=== PATIENT | male | born 2000 | race Caucasian/White ===

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

== ENCOUNTER 2018-02-05 09:17 | Emergency (ER) | payer MEDICAID ==
[2018-02-05] MEDS ORDERED: LEVETIRACETAM 500 MG TABLET PO ONE (09:45)
[2018-02-05] MEDS ORDERED: DIVALPROEX SODIUM 500 MG TAB.SR.24H PO ONE (09:45)
--- NOTE | 2018-02-05 09:49 | ER Document Report ---
ED General - General Chief Complaint: Probable Seizure Stated Complaint: POSSIBLE SEIZURE Time Seen by Provider: 02/05/18 09:39 Notes: Patient is a 17-year-old male that presents to the emergency department for chief complaint of seizure. Patient states that he was at [facility] sitting down, when he had a brief seizure, which she thinks last less than 1 minute. Denies biting his tongue or having bladder incontinence, he does have a history of seizure. He states he missed a dose of his Depakote yesterday which she takes 1500 mg of, he also takes Keppra, but did not missed doses of that. He denies having any headache, lightheadedness or dizziness at this time, denies any nausea or vomiting. He states his last seizure was in December, he is due to see his neurologist in 6 days, to discuss medication dosing. He denies any other complaints at this time. Denies having any pain. Past Medical History: Seizure disorder, ADHD, narcolepsy Past Surgical History: Denies surgical history Social History: Admits to vaping nicotine, denies alcohol or illicit drug use. Family History: Reviewed and noncontributory for presenting illness Allergies: Reviewed, see documented allergy list. REVIEW OF SYSTEMS: Other than noted above, the 12 point review of systems was reviewed with the patient and were negative, all pertinent findings are included in the HPI. PHYSICAL EXAMINATION: Vital signs reviewed, nursing noted reviewed. GENERAL: Well-appearing, well-nourished and in no acute distress. HEAD: Atraumatic, normocephalic. EYES: Eyes appear normal, extraocular movements intact, sclera anicteric, conjunctiva are normal. ENT: nares patent, oropharynx clear without exudates. Moist mucous membranes. No tongue lacerations NECK: Normal range of motion, supple without lymphadenopathy LUNGS: Breath sounds clear to auscultation bilaterally and equal. No wheezes rales or rhonchi. HEART: Regular rate and rhythm without murmurs ABDOMEN: Soft, nontender, normoactive bowel sounds. No rebound, guarding, or rigidity. No masses appreciated. EXTREMITIES: Nontender, good range of motion, no pitting or edema. NEUROLOGICAL: No focal neurological deficits. Moves all extremities spontaneously Motor and sensory grossly intact on exam. PSYCH: Normal mood, flat affect SKIN: Warm, Dry, normal turgor, no rashes or lesions noted on exposed skin TRAVEL OUTSIDE OF THE [place] IN LAST 30 DAYS: No - Related Data Allergies/Adverse Reactions: Penicillins Allergy (Verified 11/17/17 14:54) novacaine Allergy (Uncoded 11/17/17 14:54) Past Medical History - Social History Smoking Status: Unknown if Ever Smoked Chew tobacco use (# tins/day): No Frequency of alcohol use: None Drug Abuse: None Family History: Reviewed & Not Pertinent, Other - Seizure Patient has suicidal ideation: No Patient has homicidal ideation: No Neurological Medical History: Reports: Hx Seizures Renal/ Medical History: Denies: Hx Peritoneal Dialysis Psychiatric Medical History: Reports: Hx Attention Deficit Hyperactivity Disorder, Hx Depression - Immunizations Immunizations up to date: Yes Hx Diphtheria, Pertussis, Tetanus Vaccination: No Physical Exam - Vital signs Vitals: Resp Pulse Ox 12 100 02/05/18 09:21 02/05/18 09:21 Course - Re-evaluation Re-evalutation: Patient seen and examined vital signs reviewed. Patient was treated with 1500 mg of Depakote ER which is prescribed to him, as well as 1000 mg of Keppra ER, again these are his home medications The patient was re-evaluated and was stable, no further seizure activity, patient given food to eat, and monitored, patient on reevaluation again states he is feeling much better, and feels stable to go home, he has an upcoming appoint with his neurologist in 8 days. Evaluation was most consistent with seizure, patient has follow-up appointment, will be discharged home. Results were discussed with the patient at this point, after careful consideration I feel that that patient can be discharged from the emergency department, the patient was educated treatments and reasons to return to the emergency department based on their presumed diagnosis as noted above, they were advised to followup with a primary care physician in 2-3 days. Patient was agreeable to plan of care. *Note is created using voice recognition software and may contain spelling, syntax or grammatical errors. - Vital Signs Vital signs: Temp Pulse Resp BP Pulse Ox 12 129/81 H 98 18 09:22 18 09:22 02/05/18 09:22 - EKG Interpretation by Me Additional EKG results interpreted by me: EKG demonstrates sinus rhythm with a ventricular rate of 60 bpm, normal axis, normal intervals, no evidence of acute ischemia on this EKG, compared with prior EKG from 10/29/2017, without significant change. Discharge - Discharge Clinical Impression: Seizure Condition: Stable Disposition: HOME, SELF-CARE Instructions: Seizure, Known Epileptic ([facility]) Referrals: LUIS BAH MD [Primary Care Provider] - Follow up in 3-5 days
[2018-02-05 10:58] VITALS: BP 109/52
--- NOTE | 2018-02-05 13:01 | EKG REPORT ---
SEVERITY:- NORMAL ECG - SINUS RHYTHM : Confirmed by: Wilder Kuhn MD 05-Feb-2018 13:00:34
== END 2018-02-05 10:58 | disposition home or self-care (01) ==
LOC: ER 09:17
DX: G40.909 Epilepsy, unspecified, not intractable, without status epilepticus (principal); Z88.0 Allergy status to penicillin
CPT/HCPCS: 93005; 99284; 93010; J3490 ×2

== ENCOUNTER 2018-03-01 09:31 | Emergency (ER) | payer MEDICAID ==
[2018-03-01] MEDS ORDERED: LORAZEPAM 0.5 MG TABLET PO ONE (10:51)
--- NOTE | 2018-03-01 10:52 | ER Document Report ---
ED Medical Screen (RME) - General Chief Complaint: Seizure Stated Complaint: POSSIBLE SEIZURE Time Seen by Provider: 03/01/18 10:46 TRAVEL OUTSIDE OF THE [place] IN LAST 30 DAYS: No - HPI Notes: 03/01/18 10:51 Patient is a 17-year-old male that presents to the emergency department for chief complaint of seizure. Patient has epilepsy and is on Keppra and Depakote. He denies any missed medication or changes in his medication. His last seizure was in August 2017. Today while in school he had what he believes was a seizure. He does not remember the event and reports complete loss of consciousness. Wali cheng states a friend was with him who caught him and lowered him to the ground. He denied injury during the seizure.. ROS: GENERAL: Denies fever of chills CV: Denies chest pain Neuro: Seizure PHYSICAL EXAMINATION: GENERAL: Well-appearing, well-nourished and in no acute distress. HEAD: Atraumatic, normocephalic. EYES: Pupils equal round extraocular movements intact, conjunctiva are normal. ENT: Nares patent NECK: Normal range of motion LUNGS: No respiratory distress Musculoskeletal: Normal range of motion NEUROLOGICAL: Fluttering and convulsions of upper facial muscles and eyelids, normal speech, normal mentation PSYCH: Normal mood, normal affect. MDM: Patient seen and examined for rapid initial assessment. Vital signs reviewed. A comprehensive ED assessment and evaluation of the patient, analysis of test results and completion of the medical decision making process will be conducted by additional ED providers. - Related Data Allergies/Adverse Reactions: Penicillins Allergy (Verified 11/17/17 14:54) novacaine Allergy (Uncoded 11/17/17 14:54) Past Medical History - Social History Family history: Other - MOM IN JANUARY Neurological Medical History: Reports: Hx Seizures Renal/ Medical History: Denies: Hx Peritoneal Dialysis Psychiatric Medical History: Reports: Hx Attention Deficit Hyperactivity Disorder, Hx Depression - Immunizations Immunizations up to date: Yes Hx Diphtheria, Pertussis, Tetanus Vaccination: No Physical Exam - Vital signs Vitals: Temp Pulse Resp BP Pulse Ox 98.5 F 78 20 122/61 100 03/01/18 09:37 03/01/18 09:37 03/01/18 09:37 03/01/18 09:37 03/01/18 09:37 Course - Vital Signs Vital signs: Temp Pulse Resp BP Pulse Ox 98.5 F 78 20 122/61 100 03/01/18 09:37 03/01/18 09:37 03/01/18 09:37 03/01/18 09:37 03/01/18 09:37 Doctor's Discharge - Discharge Referrals: LUIS BAH MD [Primary Care Provider] - Follow up as needed
--- NOTE | 2018-03-01 12:14 | ER Document Report ---
ED General - General Chief Complaint: Seizure Stated Complaint: POSSIBLE SEIZURE Time Seen by Provider: 03/01/18 10:46 Notes: 17-year-old male that presents to the emergency department for chief complaint of seizure. Patient has epilepsy and is on Keppra and Depakote. He denies any missed medication or changes in his medication. His last seizure was in August 2017. Today while in school he had what he believes was a seizure. He does not remember the event and reports complete loss of consciousness. Patient states a friend was with him who caught him and lowered him to the ground. He denied injury during the seizure. TRAVEL OUTSIDE OF THE [place] IN LAST 30 DAYS: No - Related Data Allergies/Adverse Reactions: Penicillins Allergy (Verified 11/17/17 14:54) novacaine Allergy (Uncoded 11/17/17 14:54) Past Medical History - Social History Smoking Status: Never Smoker Chew tobacco use (# tins/day): No Frequency of alcohol use: None Drug Abuse: None Family History: Reviewed & Not Pertinent, Other - Seizure Patient has suicidal ideation: No Patient has homicidal ideation: No Neurological Medical History: Reports: Hx Seizures Renal/ Medical History: Denies: Hx Peritoneal Dialysis Psychiatric Medical History: Reports: Hx Attention Deficit Hyperactivity Disorder, Hx Depression - Immunizations Immunizations up to date: Yes Hx Diphtheria, Pertussis, Tetanus Vaccination: No Review of Systems - Review of Systems Constitutional: denies: Chills, Fever Gastrointestinal: denies: Nausea, Vomiting Neurological/Psychological: Seizure, Lost consciousness -: Yes All other systems reviewed and negative Physical Exam - Vital signs Vitals: Temp Pulse Resp BP Pulse Ox 98.5 F 78 20 122/61 100 03/01/18 09:37 03/01/18 09:37 03/01/18 09:37 03/01/18 09:37 03/01/18 09:37 - Notes Notes: GENERAL_APPEARANCE: well_nourished, alert, cooperative, no_acute_distress, no_obvious_discomfort. VITALS: reviewed, see vital signs table. HEAD: no_swelling\tenderness on the head. EYES: PERRL, EOMI, conjunctiva_clear. NOSE: no_nasal_discharge. MOUTH: (-)decreased moisture. No tongue biting THROAT: no_throat_inflammation, no_airway_obstruction. no_lymphadenopathy NECK: supple, no_neck_tenderness, (-)thyromegaly. BACK: no_back_tenderness. CHEST_WALL: no_chest_tenderness. LUNGS: no_wheezing, no_rales, no_rhonchi, (-)accessory muscle use, good air exchange bilateral. HEART: normal_rate, normal_rhythm, normal_S1, normal_S2, (-)S3, (-)S4, no_murmur, no_rub. ABDOMEN: normal_BS, soft, no_abd_tenderness, (-)guarding, (-)rebound, no_organo megaly, no_abd_masses. EXTREMITIES: good pulses in all_extremities, no_swelling\tenderness in the extremities, no_edema. SKIN: warm, dry, good_color, no_rash. MENTAL_STATUS: speech_clear, oriented_X_3, normal_affect, responds_appropriately to questions. NEURO: Neg Motor or Sensory Deficits on exam, CN 2-12 intact, DTR 2+ symmetric x 4, No cerbellar signs Course - Re-evaluation Re-evalutation: 03/01/18 12:14 Patient is doing well he was a little postictal but is waking up back to baseline. Triage was placed some levels for his medications. He states he has been compliant he has no focal neurosensory deficits. Monitor him to his baseline and discharge. The only reason he got sent is because he was in a public place at school. Has had seizures since he was young - Vital Signs Vital signs: Temp Pulse Resp BP Pulse Ox 98.5 F 78 20 122/61 100 03/01/18 09:37 03/01/18 09:37 03/01/18 10:46 03/01/18 09:37 03/01/18 09:37 - Laboratory Laboratory results interpreted by me: 03/01/18 09:15 Valproic Acid < 10.0 L Discharge - Discharge Clinical Impression: Breakthrough seizure Condition: Good Disposition: HOME, SELF-CARE Instructions: Seizure, Known Epileptic ([facility]) Additional Instructions: Your levels for your seizure medicines are very low. Please be sure that you are taking her seizure medicines as directed. Follow-up with your doctor as soon as possible Referrals: LUIS BAH MD [Primary Care Provider] - Follow up as needed
[2018-03-01] MEDS ORDERED: DIVALPROEX SODIUM 500 MG TAB.SR.24H PO ONE (13:52)
[2018-03-01] MEDS ORDERED: LEVETIRACETAM 500 MG TABLET PO ONE (14:15)
[2018-03-01 14:50] VITALS: BP 125/56
== END 2018-03-01 14:48 | disposition home or self-care (01) ==
LOC: ER 09:31
DX: G40.909 Epilepsy, unspecified, not intractable, without status epilepticus (principal); Z88.0 Allergy status to penicillin
CPT/HCPCS: 99284; 36415; 80177; 80164; J3490 ×2

== ENCOUNTER 2018-04-11 08:46 | Emergency (ER) | payer MEDICAID ==
[2018-04-11] MEDS ORDERED: NORMAL SALINE 1000 ML 1,000 ML IV ONE (10:01)
[2018-04-11] MEDS ORDERED: LEVETIRACETAM 1000 MG/NACL-ISO 1,000 MG/100 ML RTUPB IV ONE (10:02)
--- NOTE | 2018-04-11 10:10 | ER Document Report ---
ED General - General Chief Complaint: Seizure Stated Complaint: VOMITTING Time Seen by Provider: 04/11/18 09:54 Primary Care Provider: LUIS BAH MD [Primary Care Provider] - Follow up tomorrow Notes: Patient is a 17-year-old male with epilepsy that presents to the emergency department for chief complaint of seizure and episode of vomiting. Patient does not recall the events surrounding his seizure, he states he is getting ready to go to the doctor's office, and that is lasting he remembers, he was at home when this occurred. He did vomit. He denies having any cough or shortness of breath or chest pain at this time. He does take Keppra and Depakote, states he has been taking these medications, and denies missing any doses. He states overall he is feeling better and recovering from this most recent seizure. He has been seen in the ER almost once a month for the past several months for seizures. He does have a follow-up appoint with his neurologist coming up. At this time he denies having any pain, lightheadedness, dizziness, headache, numbness, weakness or tingling in any extremity. Past Medical History: Narcolepsy, seizure disorder Past Surgical History: Denies surgical history Social History: Admits to smoking cigarettes, and rare alcohol use, denies illicit drug use. Family History: Reviewed and noncontributory for presenting illness Allergies: Reviewed, see documented allergy list. REVIEW OF SYSTEMS: Other than noted above, the 12 point review of systems was reviewed with the patient and were negative, all pertinent findings are included in the HPI. PHYSICAL EXAMINATION: Vital signs reviewed, nursing noted reviewed. GENERAL: Well-appearing, well-nourished and in no acute distress. HEAD: Atraumatic, normocephalic. EYES: extraocular movements intact, sclera anicteric, conjunctiva are normal, PERRLA, mild bilateral horizontal nystagmus. ENT: nares patent, oropharynx clear without exudates. Moist mucous membranes. NECK: Normal range of motion, supple without lymphadenopathy LUNGS: Breath sounds clear to auscultation bilaterally and equal. No wheezes ra les or rhonchi. HEART: heart rate tachycardic, regular rhythm ABDOMEN: Soft, nontender, normoactive bowel sounds. No rebound, guarding, or rigidity. No masses appreciated. EXTREMITIES: Nontender, good range of motion, no pitting or edema. NEUROLOGICAL: No focal neurological deficits. Moves all extremities spontaneously Motor and sensory grossly intact on exam. PSYCH: Flat affect, but answering questions appropriately. SKIN: Warm, Dry, normal turgor, no rashes or lesions noted on exposed skin TRAVEL OUTSIDE OF THE [place] IN LAST 30 DAYS: No - Related Data Allergies/Adverse Reactions: Penicillins Allergy (Verified 04/11/18 08:50) novacaine Allergy (Uncoded 04/11/18 08:50) Past Medical History - Social History Smoking Status: Current Every Day Smoker Family History: Reviewed & Not Pertinent, Other - Seizure Neurological Medical History: Reports: Hx Seizures Renal/ Medical History: Denies: Hx Peritoneal Dialysis Psychiatric Medical History: Reports: Hx Attention Deficit Hyperactivity Disorder, Hx Depression - Immunizations Immunizations up to date: Yes Hx Diphtheria, Pertussis, Tetanus Vaccination: No Physical Exam - Vital signs Vitals: Temp Pulse Resp BP Pulse Ox 98.4 F 112 H 14 114/68 97 04/11/18 08:51 04/11/18 08:51 04/11/18 08:51 04/11/18 08:51 04/11/18 08:51 Course - Re-evaluation Re-evalutation: Patient seen and examined vital signs reviewed. Laboratory data and imaging were ordered as appropriate for the patient's presenting symptoms and complaint, with consideration of any critical or life threatening conditions that may be associated with their obtained history and exam as noted above. Previous visit reviewed, patient did have blood work drawn at that time his Depakote level was subtherapeutic, which could be the underlying issue with this patient, will repeat the Depakote level today. Patient was treated with IV fluids and IV Keppra 1000 mg Results were reviewed when available and demonstrated mild leukocytosis, his Depakote level was undetectable, I discussed this with him, that he needs to make sure he is taking his medication, and may need dose adjustments, to follow- up with his neurologist which she was agreeable to The patient was re-evaluated and was improved and stable, no further seizure activity Evaluation was most consistent with seizure nonepileptic. Results were discussed with the patient at this point, after careful consideration I feel that that patient can be discharged from the emergency department, the patient was educated treatments and reasons to return to the emergency department based on their presumed diagnosis as noted above, they were advised to followup with a primary care physician in 2-3 days. Patient was agreeable to plan of care. *Note is created using voice recognition software and may contain spelling, syntax or grammatical errors. Laboratory 04/11/18 04/11/18 10:25 10:25 WBC 12.8 H RBC 4.98 Hgb 15.4 Hct 45.0 MCV 90 MCH 30.9 MCHC 34.2 RDW 13.1 Plt Count 263 Sodium 141.3 Potassium 4.4 Chloride 100 Carbon Dioxide 29 Anion Gap 12 BUN 15 Creatinine 0.96 Est GFR ( Amer) > 60 Est GFR (Non-Af Amer) > 60 Glucose 109 Calcium 9.8 Valproic Acid < 10.0 L - Vital Signs Vital signs: Temp Pulse Resp BP Pulse Ox 97.8 F 85 16 103/60 99 04/11/18 11:18 04/11/18 11:18 04/11/18 11:18 04/11/18 11:16 04/11/18 11:18 - Laboratory Result Diagrams: 04/11/18 10:25 04/11/18 10:25 Laboratory results interpreted by me: 04/11/18 04/11/18 10:25 10:25 WBC 12.8 H Valproic Acid < 10.0 L Discharge - Discharge Clinical Impression: Seizure Condition: Stable Disposition: HOME, SELF-CARE Instructions: Seizure, Known Epileptic ([facility]) Additional Instructions: Please follow-up with your neurologist, your Depakote levels are undetectable in your system, meaning that you likely need increase in your dosing. Please make sure you are taking all the prescribed medications for your seizure disorder as directed. Referrals: LUIS BAH MD [Primary Care Provider] - Follow up tomorrow
[2018-04-11 10:41] LABS: HEMOGLOBIN 15.4 g/dL (13.5-17.0); MEAN CORPUSCULAR HEMOGLOBIN 30.9 pg (27.0-33.4); MEAN CORPUSCULAR HGB CONC 34.2 g/dL (32.0-36.0); MEAN CORPUSCULAR VOLUME 90 fl (80-97); PLATELET COUNT 263 10^3/uL (150-450); RED BLOOD COUNT 4.98 10^6/uL (4.35-5.55); RED CELL DISTRIBUTION WIDTH 13.1 % (11.5-14.0); WHITE BLOOD COUNT 12.8 10^3/uL (4.0-10.5)
[2018-04-11 11:00] LABS: ANION GAP 12 (5-19); BLOOD UREA NITROGEN 15 mg/dL (7-20); CALCIUM 9.8 mg/dL (8.4-10.2); CARBON DIOXIDE 29 mmol/L (22-30); CHLORIDE 100 mmol/L (98-107); GLUCOSE 109 mg/dL (75-110); POTASSIUM 4.4 mmol/L (3.6-5.0); SODIUM 141.3 mmol/L (137-145)
[2018-04-11 11:21] VITALS: BP 103/60
== END 2018-04-11 11:29 | disposition home or self-care (01) ==
LOC: ER 08:46
DX: R56.9 Unspecified convulsions (principal); R11.10 Vomiting, unspecified; F17.210 Nicotine dependence, cigarettes, uncomplicated
CPT/HCPCS: 99284; 96365; 36415; 85027; 80048; 80164; J7030; J1953

== ENCOUNTER 2018-06-19 16:18 | Emergency (ER) | payer MEDICAID ==
[2018-06-19] MEDS ORDERED: NORMAL SALINE 1000 ML 1,000 ML IV ONE (19:30)
[2018-06-19] MEDS ORDERED: ONDANSETRON HCL INJ/PF 4 MG/2 ML SDV IV ONE (19:30)
--- NOTE | 2018-06-19 19:32 | ER Document Report ---
ED Medical Screen (RME) - General Chief Complaint: Nausea/Vomiting/Diarrhea Stated Complaint: NAUSEA/VOMITING Time Seen by Provider: 06/19/18 19:28 Primary Care Provider: LUIS BAH MD [Primary Care Provider] - Follow up as needed Mode of Arrival: Ambulatory Information source: Patient Notes: Patient is a 17-year-old male with seizure history presenting to the emergency department with nausea, vomiting, diarrhea and fevers. He states all symptoms started yesterday. He reports generalized abdominal pain. He denies any pain, back pain, dysuria or urinary frequency. He denies any sick contacts. Exam: Patient dry heaving during exam. Abdomen soft, nontender with no guarding and no rebound. I have greeted and performed a rapid initial assessment of this patient. A comprehensive ED assessment and evaluation of the patient, analysis of test results and completion of the medical decision making process will be conducted by additional ED providers. Dictation of this chart was performed using voice recognition software; therefore, there may be some unintended grammatical errors. TRAVEL OUTSIDE OF THE [place] IN LAST 30 DAYS: No - Related Data Allergies/Adverse Reactions: Penicillins Allergy (Verified 04/11/18 08:50) novacaine Allergy (Uncoded 04/11/18 08:50) Past Medical History - Social History Family history: Other - MOM IN JANUARY Neurological Medical History: Reports: Hx Seizures Renal/ Medical History: Denies: Hx Peritoneal Dialysis Psychiatric Medical History: Reports: Hx Attention Deficit Hyperactivity Disord er, Hx Depression - Immunizations Immunizations up to date: Yes Hx Diphtheria, Pertussis, Tetanus Vaccination: No Physical Exam - Vital signs Vitals: Temp Pulse Resp BP Pulse Ox 98.3 F 106 H 18 124/65 97 06/19/18 16:29 06/19/18 16:29 06/19/18 16:29 06/19/18 16:29 06/19/18 16:29 Course - Vital Signs Vital signs: Temp Pulse Resp BP Pulse Ox 98.3 F 106 H 18 124/65 97 06/19/18 16:29 06/19/18 16:29 06/19/18 16:29 06/19/18 16:29 06/19/18 16:29 Doctor's Discharge - Discharge Referrals: LUIS BAH MD [Primary Care Provider] - Follow up as needed
[2018-06-19 20:16] LABS: APPEARANCE,URINE CLEAR; BILIRUBIN,URINE NEGATIVE (NEGATIVE); COLOR,URINE YELLOW; GLUCOSE, URINE NEGATIVE (NEGATIVE); KETONES,URINE TRACE mg/dL (NEGATIVE); LEUKOCYTE ESTERASE,URINE NEGATIVE (NEGATIVE); NITRITE,URINE NEGATIVE (NEGATIVE); PROTEIN,URINE NEGATIVE (NEGATIVE); URINE SPECIFIC GRAVITY 1.028; UROBILINOGEN,URINE NEGATIVE mg/dL (<2.0)
[2018-06-19 20:32] LABS: ABSOLUTE LYMPHOCYTES (AUTO) 1.1 10^3/uL (0.5-4.7); ABSOLUTE MONOCYTES (AUTO) 1.2 10^3/uL (0.1-1.4); ABSOLUTE NEUT (AUTO) 6.4 10^3/uL (1.7-8.2); BASOPHILS % (AUTO) 0.4 % (0-2); HEMATOCRIT 44.3 % (37.9-51.0); HEMOGLOBIN 15.3 g/dL (13.5-17.0); LYMPHOCYTES % (AUTO) 12.1 % (13-45); MEAN CORPUSCULAR HEMOGLOBIN 31.4 pg (27.0-33.4); MEAN CORPUSCULAR HGB CONC 34.6 g/dL (32.0-36.0); MEAN CORPUSCULAR VOLUME 91 fl (80-97); PLATELET COUNT 184 10^3/uL (150-450); RED BLOOD COUNT 4.88 10^6/uL (4.35-5.55); RED CELL DISTRIBUTION WIDTH 14.1 % (11.5-14.0); SEGMENTED NEUTROPHILS % (AUTO) 73.5 % (42-78); TOTAL CELLS COUNTED % (AUTO) 100 %; WHITE BLOOD COUNT 8.7 10^3/uL (4.0-10.5)
--- NOTE | 2018-06-19 20:36 | ER Document Report ---
ED General - General Chief Complaint: Nausea/Vomiting/Diarrhea Stated Complaint: NAUSEA/VOMITING Time Seen by Provider: 06/19/18 19:28 Primary Care Provider: LUIS BAH MD [Primary Care Provider] - Follow up in 3-5 days Mode of Arrival: Ambulatory Notes: Patient is a 17-year-old male who presents to the emergency department with a chief complaint of vomiting and diarrhea. He states that his symptoms started yesterday. He states that he has had more diarrhea than vomiting. He denies any sick contacts. Denies any pain. Denies hematochezia and hematemesis. He does have a past medical history of seizures, and takes Keppra and Depakote. TRAVEL OUTSIDE OF THE [place] IN LAST 30 DAYS: No - Related Data Allergies/Adverse Reactions: Penicillins Allergy (Verified 04/11/18 08:50) novacaine Allergy (Uncoded 04/11/18 08:50) Past Medical History - General Information source: Patient - Social History Smoking Status: Current Some Day Smoker Frequency of alcohol use: None Drug Abuse: None Family History: Reviewed & Not Pertinent, Other - Seizure Patient has suicidal ideation: No Patient has homicidal ideation: No Neurological Medical History: Reports: Hx Seizures Renal/ Medical History: Denies: Hx Peritoneal Dialysis Psychiatric Medical History: Reports: Hx Attention Deficit Hyperactivity Disorde r, Hx Depression - Immunizations Immunizations up to date: Yes Hx Diphtheria, Pertussis, Tetanus Vaccination: No Review of Systems - Review of Systems Notes: REVIEW OF SYSTEMS: CONSTITUTIONAL : Denies recent illness. Denies recent unintentional weight loss. Denies fever, chills, or sweats. EENT: Denies eye, ear, throat, or mouth pain, discharge, or symptoms. Denies nasal or sinus congestion. CARDIOVASCULAR: Denies chest pain. RESPIRATORY: Denies shortness of breath, cough, congestion, difficulty breathing, or wheezing. GASTROINTESTINAL: See HPI GENITOURINARY: Denies difficulty urinating, burning, blood in urine, urgency or frequency. MUSCULOSKELETAL: Denies neck and back pain. Denies joint pain or swelling. SKIN: Denies rash, itchiness, or lesions HEMATOLOGIC : Denies easy bruising or bleeding. LYMPHATIC: Denies swollen, painful, enlarged glands. NEUROLOGICAL: Denies no numbness or tingling denies weakness. Denies headache. Denies altered mental status. Denies alteration in speech. PSYCHIATRIC: Denies stress, anxiety, alteration in sleep patterns, or depression. All other systems reviewed and negative. Physical Exam - Vital signs Vitals: Temp Pulse Resp BP Pulse Ox 98.3 F 106 H 18 124/65 97 06/19/18 16:29 06/19/18 16:29 06/19/18 16:29 06/19/18 16:29 06/19/18 16:29 - Notes Notes: PHYSICAL EXAMINATION: GENERAL: Appears well, healthy, well-nourished, no acute distress. HEAD: Normocephalic, atraumatic. EYES: PERRL, conjunctiva normal, all extraocular movements intact, sclera nonicteric ENT: Dry mucous membranes. NECK: Supple, no noticeable swelling, redness, rash. Normal range of motion. LUNGS: Equal breath sounds bilaterally and clear to auscultation. No wheezes rales or rhonchi. CARDIOVASCULAR: S1-S2, regular rate, regular rhythm. Radial pulses 2+, normal. ABDOMEN: Normoactive bowel sounds. Soft, nontender, no guarding, no rebound tenderness, and no masses palpated. EXTREMITIES: Normal strength and range of motion, no pitting or edema. No cyanosis. NEUROLOGICAL: Moves all extremities upon command. Strength 5/5 in all extremities. PSYCH: Normal mood, normal affect. SKIN: Warm, dry. No rash, lesions, ulcerations noted. Normal skin turgor. Course - Re-evaluation Re-evalutation: 06/19/18 20:59 Patient CBC and chemistries are unremarkable. Urinalysis is unremarkable. Patient's abdominal exam is very benign. He states that when I pressed on his abdomen, makes him feel like he is going to have some diarrhea. Denies any pain. I do not suspect appendicitis, mesenteric ischemia, bowel obstruction, perforated bowel, or other life-threatening etiology at this time. I suspect t his is a viral gastroenteritis. He will be sent home with Zofran as needed for nausea. I have discussed that the virus needs to run its course. He is in agreement with this plan he will follow-up with his primary care doctor. Verbal discharge instructions were given to the patient. They verbalized understanding. They are stable for discharge. - Vital Signs Vital signs: Temp Pulse Resp BP Pulse Ox 98.4 F 81 18 112/60 99 06/19/18 21:58 06/19/18 21:58 06/19/18 21:58 06/19/18 21:58 06/19/18 21:58 - Laboratory Result Diagrams: 06/19/18 20:00 06/19/18 20:00 Laboratory results interpreted by me: 06/19/18 06/19/18 06/19/18 19:57 20:00 20:00 RDW 14.1 H Lymphocytes % 12.1 L Monocytes % 14.0 H Chloride 95 L BUN 25 H Alkaline Phosphatase 60 L Urine Ketones TRACE H Urine Blood SMALL H Discharge - Discharge Clinical Impression: Vomiting and diarrhea Condition: Stable Disposition: HOME, SELF-CARE Instructions: Intravenous (IV) Fluids ([facility]), Vomiting ([facility]) Additional Instructions: You were seen today in the emergency department for vomiting and diarrhea. Most likely cause of your nausea and vomiting is a viral infection. You been given nausea medication. Please take 1 tablet every 4-6 hours as needed for nausea and vomiting. Please follow-up with your primary care provider in 3 to 5 days. If you have worsening symptoms, have symptoms that are worrisome to you, or have abdominal pain, please return to the emergency department. Referrals: LUIS BAH MD [Primary Care Provider] - Follow up in 3-5 days
[2018-06-19 20:45] LABS: ALANINE AMINOTRANSFERASE 25 U/L (10-40); ALBUMIN 4.6 g/dL (3.7-5.6); ALKALINE PHOSPHATASE 60 U/L (65-260); ANION GAP 15 (5-19); ASPARTATE AMINO TRANSFERASE 25 U/L (10-45); BILIRUBIN,DIRECT 0.2 mg/dL (0.0-0.4); BILIRUBIN,TOTAL 0.4 mg/dL (0.2-1.3); BLOOD UREA NITROGEN 25 mg/dL (7-20); CALCIUM 9.8 mg/dL (8.4-10.2); CARBON DIOXIDE 30 mmol/L (22-30); CHLORIDE 95 mmol/L (98-107); GLUCOSE 89 mg/dL (75-110); LIPASE 35.9 U/L (23-300); POTASSIUM 3.6 mmol/L (3.6-5.0); SODIUM 139.8 mmol/L (137-145); TOTAL PROTEIN 7.8 g/dL (6.3-8.2)
[2018-06-19] MEDS ORDERED: ONDANSETRON ODT 4 MG TAB (6 TAB/ER DISP) PO PRN (21:01)
[2018-06-19 21:59] VITALS: BP 112/60
== END 2018-06-19 21:58 | disposition home or self-care (01) ==
LOC: ER 16:18
DX: R11.2 Nausea with vomiting, unspecified (principal); R19.7 Diarrhea, unspecified; F17.200 Nicotine dependence, unspecified, uncomplicated
CPT/HCPCS: 99284; 96361; 96374; 36415; 83690; 85025; 80053; 81001; J2405; J7030

== ENCOUNTER 2018-09-14 15:25 | Emergency (ER) | payer MEDICAID ==
[2018-09-14] MEDS ORDERED: LEVETIRACETAM INJ/PF 500 MG/5 ML SDV IV ONE (15:48)
[2018-09-14 15:54] LABS: ABSOLUTE BASOPHILS # (AUTO) 0.1 10^3/uL (0.0-0.2); ABSOLUTE EOSINOPHILS # (AUTO) 0.1 10^3/uL (0.0-0.6); ABSOLUTE LYMPHOCYTES (AUTO) 2.1 10^3/uL (0.5-4.7); ABSOLUTE MONOCYTES (AUTO) 0.8 10^3/uL (0.1-1.4); ABSOLUTE NEUT (AUTO) 6.6 10^3/uL (1.7-8.2); BASOPHILS % (AUTO) 0.5 % (0-2); EOSINOPHILS % (AUTO) 1.5 % (0-6); HEMATOCRIT 40.3 % (37.9-51.0); HEMOGLOBIN 13.8 g/dL (13.5-17.0); LYMPHOCYTES % (AUTO) 21.6 % (13-45); MEAN CORPUSCULAR HEMOGLOBIN 31.5 pg (27.0-33.4); MEAN CORPUSCULAR HGB CONC 34.2 g/dL (32.0-36.0); MEAN CORPUSCULAR VOLUME 92 fl (80-97); MONOCYTES % (AUTO) 8.1 % (3-13); PLATELET COUNT 249 10^3/uL (150-450); RED BLOOD COUNT 4.38 10^6/uL (4.35-5.55); RED CELL DISTRIBUTION WIDTH 12.6 % (11.5-14.0); SEGMENTED NEUTROPHILS % (AUTO) 68.3 % (42-78); TOTAL CELLS COUNTED % (AUTO) 100 %; WHITE BLOOD COUNT 9.7 10^3/uL (4.0-10.5)
[2018-09-14] MEDS ORDERED: VALPROATE SODIUM INJ/PF 500 MG/5 ML SDV IV ONE (15:54)
--- NOTE | 2018-09-14 16:00 | ER Document Report ---
ED General - General Chief Complaint: Probable Seizure Stated Complaint: SEIZURE Time Seen by Provider: 09/14/18 15:42 Primary Care Provider: LUIS BAH MD [Primary Care Provider] - Follow up as needed Information source: Patient Notes: HPI: 17-year-old male with a long history of seizure disorders. Supposedly has been out of his Keppra and Depakote since Sunday. He did see the primary care physician and went to the pharmacy but supposed with the pharmacy at [facility] did not yet have the medications ready. He does have a primary care physician. Patient started to have some "eyes flickering" today. Specially this is the prodrome of his normal tonic-clonic seizures. He has had this multiple times in the past. Girlfriend is at bedside. Patient has not fa llen, no obvious tonic-clonic activity, and the patient is still answering questions. Patient denies any and all pain. Last medications have been taken for Sunday. Patient normally takes 1500 mg of Depakote and 1000 mg of Keppra daily. ROS: See HPI All other review of systems reviewed and otherwise negative Reviewed vital signs and nursing note as charted by RN. PHYSICAL EXAM: CONSTITUTIONAL: Alert and does answer questions and follow commands HEAD: Normocephalic; atraumatic EYES: PERRL; she has a flickering like I finding that does not look nystagmus in nature; it does involve the eyelids; conjunctivae clear, sclerae non-icteric ENT: Normal nose; no rhinorrhea; moist mucous membranes; pharynx without lesions noted NECK: Supple without meningismus; non-tender; no cervical lymphadenopathy, no masses CARD: Regular rate and rhythm; no murmurs; symmetric distal pulses RESP: Normal chest excursion without splinting or tachypnea; breath sounds clear and equal bilaterally; no wheezes, no rhonchi, no rales ABD/GI: Normal bowel sounds; non-distended; soft, non-tender BACK: The back appears normal and is non-tender to palpation EXT: Normal ROM in all joints; non-tender to palpation; no edema SKIN: No acute lesions noted NEURO: 5/5 bilateral upper and lower extremity strength with sensation intact to light touch TRAVEL OUTSIDE OF THE [place] IN LAST 30 DAYS: No - Related Data Allergies/Adverse Reactions: Penicillins Allergy (Verified 04/11/18 08:50) novacaine Allergy (Uncoded 04/11/18 08:50) Past Medical History - Social History Smoking Status: Unknown if Ever Smoked Family History: Reviewed & Not Pertinent, Other - Seizure Neurological Medical History: Reports: Hx Seizures Renal/ Medical History: Denies: Hx Peritoneal Dialysis Psychiatric Medical History: Reports: Hx Attention Deficit Hyperactivity Disorder, Hx Depression - Immunizations Immunizations up to date: Yes Hx Diphtheria, Pertussis, Tetanus Vaccination: No Physical Exam - Vital signs Vitals: Temp Pulse Resp BP Pulse Ox 99.0 F 75 16 108/72 94 09/14/18 15:35 09/14/18 15:35 09/14/18 15:35 09/14/18 15:35 09/14/18 15:35 Course - Re-evaluation Re-evalutation: 09/14/18 16:00 Patient appears to have a very long history of similar symptoms. He has been to the emergency department multiple times. I will order basic labs including electrolytes and load the patient with both Keppra and valproic acid. 09/14/18 17:06 Patient symptoms have improved. He is talking and conversing normally with no eye flickering movements. Both father and stepmother in the room. They understand the medical situation. They do agree that the patient takes 1000 mg of Keppra and 1500 mg of valproic acid daily. They understand the importance of starting these medications tomorrow morning. They assure that the patient will be watched overnight. Strict return precautions have been explained. - Vital Signs Vital signs: Temp Pulse Resp BP Pulse Ox 99.0 F 75 16 108/72 98 09/14/18 15:35 09/14/18 15:35 09/14/18 15:35 09/14/18 15:35 09/14/18 16:03 - Laboratory Result Diagrams: 09/14/18 15:40 09/14/18 15:40 Laboratory results interpreted by me: 09/14/18 09/14/18 15:40 15:40 Alkaline Phosphatase 55 L Valproic Acid < 10.0 L Discharge - Discharge Clinical Impression: Seizure, Noncompliance with medication regimen Condition: Good Disposition: HOME, SELF-CARE Additional Instructions: Come back immediately with any repeat seizures, headache, lightheadedness, dizziness, weakness or numbness, vomiting, or any other acute problems. Please do not drive a car, go swimming alone, take a bath alone, engage in any other activities that may cause serious harm to you or others if he should have a repeat seizure. Please take the medications as prescribed and follow-up with your primary care physician. Prescriptions: Divalproex Sodium [Depakote ER 500 mg Tab.sr] 1,500 mg PO DAILY 30 Days #90 tab.sr.24h Levetiracetam [Keppra Xr 500 Mg Tab.Sr] 1,000 mg PO DAILY 30 Days #60 tab.sr.24h Referrals: LUIS BAH MD [Primary Care Provider] - Follow up as needed
[2018-09-14] MEDS ORDERED: LEVETIRACETAM 1000 MG/NACL-ISO 1,000 MG/100 ML RTUPB IV ONE ×2 (16:07→16:11)
[2018-09-14 16:12] LABS: ALANINE AMINOTRANSFERASE 19 U/L (10-40); ALBUMIN 4.5 g/dL (3.7-5.6); ALKALINE PHOSPHATASE 55 U/L (65-260); ANION GAP 11 (5-19); ASPARTATE AMINO TRANSFERASE 21 U/L (10-45); BILIRUBIN,DIRECT 0.2 mg/dL (0.0-0.4); BILIRUBIN,TOTAL 0.3 mg/dL (0.2-1.3); BLOOD UREA NITROGEN 10 mg/dL (7-20); CALCIUM 10.1 mg/dL (8.4-10.2); CARBON DIOXIDE 27 mmol/L (22-30); CHLORIDE 102 mmol/L (98-107); GLUCOSE 82 mg/dL (75-110); POTASSIUM 4.2 mmol/L (3.6-5.0)
[2018-09-14 17:58] VITALS: BP 124/78
== END 2018-09-14 18:00 | disposition home or self-care (01) ==
LOC: ER 15:25
DX: G40.909 Epilepsy, unspecified, not intractable, without status epilepticus (principal); Z91.14 Patient's other noncompliance with medication regimen
CPT/HCPCS: 99284; 96365; 96367; 36415; 85025; 80053; 80164; J3490; J1953

== ENCOUNTER 2018-11-22 12:05 | Emergency (ER) | payer MEDICAID ==
--- NOTE | 2018-11-22 12:17 | ER Document Report ---
ED Medical Screen (RME) - General Chief Complaint: Shoulder Pain Stated Complaint: LEFT SHOULDER PAIN Time Seen by Provider: 11/22/18 12:14 Primary Care Provider: LUIS BAH MD [Primary Care Provider] - Follow up as needed Mode of Arrival: Medic Information source: Patient Notes: 17-year-old male left shoulder. He states he had seizures yesterday and today and possibly dislocated his shoulder during 1 of the seizures. He does have a hip history of epilepsy and narcolepsy. He states he has had multiple seizures over the last couple days. His significant other is with him he states that he did not go to sleep after the seizure this morning but he thinks that he broke his arm during the seizure. Patient told her that he thinks he dislocated his shoulder on the seizure yesterday and broke his arm today on the seizure. He does not have deformity that is at this time we will get x-rays done. We will also get blood and urine to see his electrolyte Depakote level. He states he has been taking his Keppra but does not have his Depakote so he could not take it I have greeted and performed a rapid initial assessment of this patient. A comprehensive ED assessment and evaluation of the patient, analysis of test results and completion of medical decision making process will be conducted by an additional ED providers. TRAVEL OUTSIDE OF THE [place] IN LAST 30 DAYS: No - Related Data Allergies/Adverse Reactions: Penicillins Allergy (Verified 11/22/18 12:14) novacaine Allergy (Uncoded 11/22/18 12:14) Past Medical History - Social History Family history: Other - MOM IN JANUARY Neurological Medical History: Reports: Hx Seizures Renal/ Medical History: Denies: Hx Peritoneal Dialysis Psychiatric Medical History: Reports: Hx Attention Deficit Hyperactivity Disorder, Hx Depression - Immunizations Immunizations up to date: Yes Hx Diphtheria, Pertussis, Tetanus Vaccination: No Doctor's Discharge - Discharge Referrals: LUIS BAH MD [Primary Care Provider] - Follow up as needed
--- NOTE | 2018-11-22 13:01 | RADIOLOGY REPORT (SQ) ---
EXAM DESCRIPTION: SHOULDER LEFT 1 VIEW COMPLETED DATE/TIME: 11/22/2018 12:45 pm REASON FOR STUDY: fall during seizure COMPARISON: None. NUMBER OF VIEWS: One view. TECHNIQUE: Single frontal images acquired of the left shoulder. LIMITATIONS: None. FINDINGS: MINERALIZATION: Normal. BONES: No acute fracture. No worrisome bone lesions. JOINTS: Shoulder dislocation with medial and mildly inferior position of the humeral head in relation to the glenoid on this single frontal projection. VISUALIZED LUNGS AND RIBS: No pneumothorax. No rib fracture. SOFT TISSUES: No radiopaque foreign body. OTHER: No other significant finding. IMPRESSION: Shoulder dislocation, likely anterior although only single frontal projection obtained. No definite fracture. TECHNICAL DOCUMENTATION: JOB ID: [id number] [employer]- All Rights Reserved Reading location - IP/workstation name: [email or web address]
[2018-11-22 13:14] LABS: ABSOLUTE LYMPHOCYTES (AUTO) 1.5 10^3/uL (0.5-4.7); ABSOLUTE MONOCYTES (AUTO) 0.5 10^3/uL (0.1-1.4); ABSOLUTE NEUT (AUTO) 11.2 10^3/uL (1.7-8.2); BASOPHILS % (AUTO) 0.4 % (0-2); EOSINOPHILS % (AUTO) 0.1 % (0-6); HEMATOCRIT 43.7 % (37.9-51.0); HEMOGLOBIN 14.9 g/dL (13.5-17.0); LYMPHOCYTES % (AUTO) 11.1 % (13-45); MEAN CORPUSCULAR HEMOGLOBIN 31.3 pg (27.0-33.4); MEAN CORPUSCULAR VOLUME 92 fl (80-97); MONOCYTES % (AUTO) 3.8 % (3-13); PLATELET COUNT 248 10^3/uL (150-450); RED BLOOD COUNT 4.74 10^6/uL (4.35-5.55); SEGMENTED NEUTROPHILS % (AUTO) 84.6 % (42-78); TOTAL CELLS COUNTED % (AUTO) 100 %; WHITE BLOOD COUNT 13.2 10^3/uL (4.0-10.5)
[2018-11-22 13:33] LABS: ALBUMIN 5.4 g/dL (3.7-5.6); ALKALINE PHOSPHATASE 65 U/L (65-260); ANION GAP 13 (5-19); ASPARTATE AMINO TRANSFERASE 31 U/L (10-45); BILIRUBIN,DIRECT 0.1 mg/dL (0.0-0.4); BILIRUBIN,TOTAL 0.4 mg/dL (0.2-1.3); BLOOD UREA NITROGEN 13 mg/dL (7-20); CALCIUM 10.6 mg/dL (8.4-10.2); CARBON DIOXIDE 25 mmol/L (22-30); CHLORIDE 102 mmol/L (98-107); GLUCOSE 115 mg/dL (75-110); POTASSIUM 4.5 mmol/L (3.6-5.0); TOTAL PROTEIN 8.9 g/dL (6.3-8.2)
--- NOTE | 2018-11-22 14:06 | ER Document Report ---
ED General - General Chief Complaint: Shoulder Injury Stated Complaint: LEFT SHOULDER PAIN Time Seen by Provider: 11/22/18 12:14 Primary Care Provider: LUIS BAH MD [Primary Care Provider] - Follow up as needed Mode of Arrival: Medic TRAVEL OUTSIDE OF THE [place] IN LAST 30 DAYS: No - HPI Patient complains to provider of: shoulder injury Notes: patient has a h/o seizures and notes he had a seizure today and injured his left shoulder he has dislocated his shoulder previously with seizures he feels normal now aside from left shoulder pain and limited ROM no headache, neck stiffness or fever - Related Data Allergies/Adverse Reactions: Penicillins Allergy (Verified 11/22/18 12:14) novacaine Allergy (Uncoded 11/22/18 12:14) Past Medical History - General Information source: Patient - Social History Smoking Status: Current Every Day Smoker Chew tobacco use (# tins/day): No Frequency of alcohol use: None Drug Abuse: None Family History: Reviewed & Not Pertinent, Other - Seizure Patient has suicidal ideation: No Patient has homicidal ideation: No Neurological Medical History: Reports: Hx Seizures Renal/ Medical History: Denies: Hx Peritoneal Dialysis Psychiatric Medical History: Reports: Hx Attention Deficit Hyperactivity Disord er, Hx Depression - Immunizations Immunizations up to date: Yes Hx Diphtheria, Pertussis, Tetanus Vaccination: No Review of Systems - Review of Systems Constitutional: No symptoms reported EENT: No symptoms reported Cardiovascular: No symptoms reported Respiratory: No symptoms reported Gastrointestinal: No symptoms reported Genitourinary: No symptoms reported Male Genitourinary: No symptoms reported Musculoskeletal: Joint pain, Deformity Skin: No symptoms reported Hematologic/Lymphatic: No symptoms reported Neurological/Psychological: Seizure Physical Exam - Vital signs Vitals: Temp Pulse Resp BP Pulse Ox 98.7 F 59 L 16 125/75 95 11/22/18 12:13 11/22/18 12:13 11/22/18 12:13 11/22/18 12:13 11/22/18 12:13 Interpretation: Normal - General General appearance: Appears well, Alert - HEENT Head: Normocephalic, Atraumatic Eyes: Normal Pupils: PERRL - Respiratory Respiratory status: No respiratory distress Chest status: Nontender Breath sounds: Normal Chest palpation: Normal - Cardiovascular Rhythm: Regular Heart sounds: Normal auscultation Murmur: No - Abdominal Inspection: Normal Distension: No distension Bowel sounds: Normal Tenderness: Nontender Organomegaly: No organomegaly - Back Back: Normal, Nontender - Extremities General upper extremity: Normal inspection, Nontender, Normal color, Normal ROM, Normal temperature General lower extremity: Normal inspection, Nontender, Normal color, Normal ROM, Normal temperature, Normal weight bearing. No: Hever's sign Shoulder: Other - L shoulder dislocated and tender w/ decreased ROM - Neurological Neuro grossly intact: Yes Cognition: Normal Orientation: AAOx4 [place] Coma Scale Eye Opening: Spontaneous [place] Coma Scale Verbal: Oriented Ghanshyam Coma Scale Motor: Obeys Commands Ghanshyam Coma Scale Total: 15 Speech: Normal Motor strength normal: LUE, RUE, LLE, RLE Sensory: Normal - Psychological Associated symptoms: Normal affect, Normal mood - Skin Skin Temperature: Warm Skin Moisture: Dry Skin Color: Normal Course - Re-evaluation Re-evalutation: 11/22/18 15:50 xray w/ shoulder dislocation reduced in ED discharge in sling w/ orthopedic follow up he has known seizures and is neurologically at baseline and reports compliance w/ his antiepileptics - Vital Signs Vital signs: Temp Pulse Resp BP Pulse Ox 97.8 F 66 18 115/83 100 11/22/18 15:21 11/22/18 15:11 11/22/18 15:30 11/22/18 15:30 11/22/18 15:30 - Laboratory Result Diagrams: 11/22/18 12:56 11/22/18 12:56 Laboratory results interpreted by me: 11/22/18 11/22/18 12:56 12:56 WBC 13.2 H Lymph % (Auto) 11.1 L Absolute Neuts (auto) 11.2 H Seg Neutrophils % 84.6 H Glucose 115 H Calcium 10.6 H Total Protein 8.9 H Valproic Acid < 10.0 L - Diagnostic Test Radiology reviewed: Image reviewed, Reports reviewed Procedures - Conscious Sedation Conscious sedation Consent obtained: Yes Indication: shoulder dislocation Used during procedure: Suction available, IV access obtained, Pulse ox on pt., port patrol officer on pt. Medications administered: Diprivan I personally performed/intraservice time: Sedation, 30 min or less Complications: No - Joint Reduction/Fracture Care Right Shoulder Consent obtained: Yes Conscious sedation: Yes Post-procedure NV exam: Yes - intact Post-reduction x-ray: Joint reduced Reduction attempts: 1 Complications: No Discharge - Discharge Clinical Impression: Seizure Shoulder dislocation Qualifiers: Encounter type: initial encounter Laterality: left Qualified Code(s): S43.005A - Unspecified dislocation of left shoulder joint, initial encounter Condition: Stable Disposition: HOME, SELF-CARE Instructions: Shoulder Dislocation ([facility]), Sling as Treatment ([facility]) Additional Instructions: follow up with orthopedics return to ED with worsening take home medicines as directed Referrals: LUIS BAH MD [Primary Care Provider] - Follow up as needed PATRICIO HO DO [ACTIVE STAFF] - Follow up as needed
[2018-11-22] MEDS ORDERED: PROPOFOL INJ 200 MG/20 ML VIAL IV ONE (14:44)
--- NOTE | 2018-11-22 16:07 | RADIOLOGY REPORT (SQ) ---
EXAM DESCRIPTION: SHOULDER LEFT 2 OR MORE VIEWS COMPLETED DATE/TIME: 11/22/2018 3:57 pm REASON FOR STUDY: post reduction COMPARISON: 11/22/2018 NUMBER OF VIEWS: Three views. TECHNIQUE: Frontal and Y-views acquired of the left shoulder. LIMITATIONS: None. FINDINGS: MINERALIZATION: Normal. BONES: Improved alignment post reduction. No definite acute bony abnormality. JOINTS: No dislocation. VISUALIZED LUNGS AND RIBS: No pneumothorax. No rib fracture. SOFT TISSUES: No radiopaque foreign body. OTHER: No other significant finding. IMPRESSION: Improved alignment post reduction. No definite fracture. TECHNICAL DOCUMENTATION: JOB ID: [id number] [employer]- All Rights Reserved Reading location - IP/workstation name: [email or web address]
[2018-11-22 16:11] VITALS: BP 120/60
== END 2018-11-22 16:23 | disposition home or self-care (01) ==
LOC: ER 12:05
PROC: 0RSJXZZ Reposition Right Shoulder Joint, External Approach (ICD-10-PCS; principal; 2018-11-22)
DX: S43.005A Unspecified dislocation of left shoulder joint, initial encounter (principal); R56.9 Unspecified convulsions; M25.512 Pain in left shoulder; X58.XXXA Exposure to other specified factors, initial encounter; F17.200 Nicotine dependence, unspecified, uncomplicated
CPT/HCPCS: 99284; 99152; 36415; 83690; 85025; 80053; 80164; 73020; 73030; 23650; L3650; J2704

== ENCOUNTER 2019-04-15 18:11 | Emergency (ER) | payer OTHER, MEDICAID ==
[2019-04-15] MEDS ORDERED: IBUPROFEN 600 MG TABLET PO ONE (19:37)
--- NOTE | 2019-04-15 19:37 | ER Document Report ---
ED Hand/Wrist Injury - General Chief Complaint: Laceration Stated Complaint: LACERATION/RIGHT THUMB Time Seen by Provider: 04/15/19 19:31 Primary Care Provider: LUIS BAH MD [Primary Care Provider] - Follow up in 3-5 days Mode of Arrival: Ambulatory Information source: Patient Notes: 18-year-old male presented to ED for laceration to the right thumb. It was about 2 cm long. He cut it with a knife while at work about 440 5:00. He states he is allergic to lidocaine and the last time he had sutures they did a lidocaine in his lip swelled up. It is bleeding is under control at this time. He is alert oriented respirations regular nonlabored speaking in full sentences. He denies any past medical history surgical history or any allergies to medications. He states he does smoke 3 cigarettes a day but does not use drugs or alcohol. TRAVEL OUTSIDE OF THE [place] IN LAST 30 DAYS: No - HPI Injury to: Thumb Onset: This afternoon Where: Work Timing: Still present Quality of pain: Sharp Severity: Moderate Pain Level: 3 Context: Laceration - Related Data Allergies/Adverse Reactions: Penicillins Allergy (Verified 11/22/18 12:14) novacaine Allergy (Uncoded 11/22/18 12:14) Past Medical History - General Information source: Patient - Social History Smoking Status: Current Every Day Smoker Cigarette use (# per day): Yes - 3 cigarettes a day Smoking Education Provided: Yes - 4 minutes Frequency of alcohol use: None Drug Abuse: None Occupation: [employer] Lives with: Family Family History: Reviewed & Not Pertinent, Other - Seizure - Past Medical History Cardiac Medical History: Reports: None Pulmonary Medical History: Reports: None EENT Medical History: Reports: None Neurological Medical History: Reports: Hx Seizures Endocrine Medical History: Reports: None Renal/ Medical History: Reports: None Malignancy Medical History: Reports None GI Medical History: Reports: None Musculoskeletal Medical History: Reports None Skin Medical History: Reports None Psychiatric Medical History: Reports: Hx Attention Deficit Hyperactivity Disorder, Hx Depression Traumatic Medical History: Reports: None Infectious Medical History: Reports: None Surgical Hx: Negative Past Surgical History: Reports: None - Immunizations Immunizations up to date: Yes Hx Diphtheria, Pertussis, Tetanus Vaccination: Yes Review of Systems - Review of Systems Constitutional: No symptoms reported EENT: No symptoms reported Cardiovascular: No symptoms reported Respiratory: No symptoms reported Gastrointestinal: No symptoms reported Genitourinary: No symptoms reported Male Genitourinary: No symptoms reported Musculoskeletal: No symptoms reported Skin: Other - Laceration to the right thumb Hematologic/Lymphatic: No symptoms reported Neurological/Psychological: No symptoms reported Physical Exam - Vital signs Vitals: Temp Pulse Resp BP Pulse Ox 98.4 F 85 20 126/71 H 97 04/15/19 18:55 04/15/19 18:55 04/15/19 18:55 04/15/19 18:55 04/15/19 18:55 Interpretation: Normal - General General appearance: Appears well, Alert - HEENT Head: Normocephalic, Atraumatic Eyes: Normal Pupils: PERRL - Respiratory Respiratory status: No respiratory distress Chest status: Nontender Breath sounds: Normal Chest palpation: Normal - Cardiovascular Rhythm: Regular Heart sounds: Normal auscultation Murmur: No - Abdominal Inspection: Normal Distension: No distension Bowel sounds: Normal Tenderness: Nontender Organomegaly: No organomegaly - Back Back: Normal, Nontender - Extremities General upper extremity: Normal inspection, Nontender, Normal color, Normal ROM, Normal temperature General lower extremity: Normal inspection, Nontender, Normal color, Normal ROM, Normal temperature, Normal weight bearing. No: Hever's sign - Neurological Neuro grossly intact: Yes Cognition: Normal Orientation: AAOx4 [place] Coma Scale Eye Opening: Spontaneous Ghanshyam Coma Scale Verbal: Oriented [place] Coma Scale Motor: Obeys Commands Ghanshyam Coma Scale Total: 15 Speech: Normal Motor strength normal: LUE, RUE, LLE, RLE Sensory: Normal - Psychological Associated symptoms: Normal affect, Normal mood - Skin Skin Temperature: Warm Skin Moisture: Dry Skin Color: Normal Skin irregularity: Laceration Location of irregularity: Extremities - Right thumb 2 cm lateral thumb Irregularity with: Tenderness Course - Vital Signs Vital signs: Temp Pulse Resp BP Pulse Ox 98.5 F 76 18 124/64 97 04/15/19 19:59 04/15/19 19:59 04/15/19 19:59 04/15/19 19:59 04/15/19 19:59 Procedures - Laceration/Wound Repair Right Finger Thumb Time completed: 19:41 Wound length (cm): 2 Wound's Depth, Shape: Into muscle, Linear Laceration pre-procedure: Sterile PPE donned, Sterile drapes applied, Shur-Clens applied Anesthetic type: Other - None patient states he is allergic to lidocaine Volume Anesthetic (mLs): 0 Wound explored: Contaminated Irrigated w/ Saline (mLs): 400 Wound Repaired With: Dermabond Post-procedure wound care: Sterile dressing applied, Splint applied Post-procedure NV exam normal: Yes Complications: No Discharge - Discharge Clinical Impression: Thumb laceration Qualifiers: Encounter type: initial encounter Damage to nail status: without damage Foreign body presence: without foreign body Laterality: right Qualified Code(s): S61.011A - Laceration without foreign body of right thumb without damage to nail, initial encounter Condition: Stable Disposition: HOME, SELF-CARE Additional Instructions: Hand Laceration A laceration on the hand can present special problems. It may be difficult to keep the wound dry. Motion of the fingers can disturb the healing edges. Your work may involve exposure to damaging chemicals or water. Keep the wound clean and dry. If you can't keep the cut dry, undisturbed, and free of chemical exposure, please discuss this with the doctor. If any water or chemical gets onto the dressing, remove it, blot the wound dry, then apply a fresh bandage. Dressings should be changed every day. If you feel the stitches pulling as you move the hand, a splint or other form of protection is needed. If any signs of infection occur (swelling, redness, increasing tenderness, red streaks, tender lumps in the armpit, or fever), see the doctor immediately. Dermabond (Skin Adhesive Closure) Skin adhesive (such as Dermabond) is a quick-drying glue that remains slightly flexible while it holds wound edges together. It can substitute for stitches on some cuts. The film will usually fall off the skin after 5 to 10 days. Keep the wound area clean and dry. Do not soak or scrub the wound. Don't swim. You can shower briefly after 24 hours. Gently blot the area dry with a soft towel. Don't apply ointments. If there is a dressing, change it immediately if it gets wet. Do not place tape directly over the adhesive film, because the tape may pull the film off your skin as you remove it. Don't bump the wound area. If there's risk of injury, keep the area well- padded. Avoid stretching of the skin. Do not scratch or pick at the adhesive film. Avoid prolonged exposure to sunlight or tanning lamps. Return if there is increasing pain, swelling, redness, or drainage, or if the wound edges seem to open or separate. Acetaminophen Acetaminophen may be taken for pain relief or fever control. It's much safer than aspirin, offering a wider range of "safe" dosages. It is safe during . Some brand names are Tylenol, Panadol, Datril, Anacin 3, Tempra, and Liquiprin. Acetaminophen can be repeated every four hours. The following are maximum recommended dosages: WEIGHT Dose Drops Elixir Chewable(80mg) (LBS.) drprs=droppers tsp=teaspoon 6 40 mg .4 ml (1/2) 6-11 80 mg .8 ml (full) 1/2 tsp 1 tab 12-16 120 mg 1 1/2 drprs 3/4 tsp 1 1/2 tabs 17-23 160 mg 2 drprs 1 tsp 2 tabs 24-30 240 mg 3 drprs 1 1/2 tsp 3 tabs 30-35 320 mg 2 tsp 4 tabs 36-41 360 mg 2 1/4 tsp 4 1/2 tabs 42-47 400 mg 2 1/2 tsp 5 tabs 48-53 480 mg 3 tsp 6 tabs 54-59 520 mg 3 1/4 tsp 6 1/2 tabs 60-64 560 mg 3 1/2 tsp 7 tabs 65-70 600 mg 3 3/4 tsp 7 1/2 tabs 71-76 640 mg 4 tsp 8 tabs 77-82 720 mg 4 1/2 tsp 9 tabs 83-88 800 mg 5 tsp 10 tabs >89 pounds or adults 650 mg to 900 mg Acetaminophen can be repeated every four hours. Maximum daily dose not to exceed 4000 mg. These maximum recommended dosages are slightly higher than the dosages written on the product container, but these dosages are very safe and well below the toxic dosage for acetaminophen. Ibuprofen Ibuprofen is an excellent, safe drug for pain control. In addition, it has potent antiinflammatory effects which are beneficial, especially in the treatment of injuries, arthritis, or tendonitis. It's best to take ibuprofen with food. Persons with ulcer disease or allergy to aspirin should notify their physician of this before taking ibuprofen. Take the medication exactly as prescribed. Don't take additional doses unless instructed to do so by your doctor. If you develop wheezing, shortness of breath, hives, faintness, stomach pain, vomiting, or dark black stools, return for re-evaluation at once. Elevate the Injury Because of the nature of your injury, elevation will be helpful to reduce swelling. This also reduces infection risk in wounds. Keep the injury up above the level of your heart for at least the next 48 hours (or longer if the physician recommends it). Please leave splint on your thumb for at least the next 4 days do not bend your thumb do not get your thumb wet at all for 24 hours. After 24 hours you can wash your hand but you cannot put your hand in standing water. FOLLOW-UP CARE: If you have been referred to a physician for follow-up care, call the physicians office for an appointment as you were instructed or within the next two days. If you experience worsening or a significant change in your symptoms, notify the physician immediately or return to the Emergency Department at any time for re-evaluation. Forms: Special Work Note, Return to School Referrals: LUIS BAH MD [Primary Care Provider] - Follow up in 3-5 days
[2019-04-15 20:02] VITALS: BP 124/64
== END 2019-04-15 19:59 | disposition home or self-care (01) ==
LOC: ER 18:11
PROC: 0HQFXZZ Repair Right Hand Skin, External Approach (ICD-10-PCS; principal; 2019-04-15)
DX: S61.011A Laceration without foreign body of right thumb without damage to nail, initial encounter (principal); W26.0XXA Contact with knife, initial encounter; Z88.8 Allergy status to other drugs, medicaments and biological substances; F17.210 Nicotine dependence, cigarettes, uncomplicated
CPT/HCPCS: 99282

== ENCOUNTER 2019-06-24 19:39 | Emergency (ER) | payer MEDICAID, OTHER ==
[2019-06-24 21:18] LABS: ABSOLUTE EOSINOPHILS # (AUTO) 0.1 10^3/uL (0.0-0.6); ABSOLUTE LYMPHOCYTES (AUTO) 2.5 10^3/uL (0.5-4.7); ABSOLUTE MONOCYTES (AUTO) 0.8 10^3/uL (0.1-1.4); ABSOLUTE NEUT (AUTO) 2.6 10^3/uL (1.7-8.2); BASOPHILS % (AUTO) 0.7 % (0-2); EOSINOPHILS % (AUTO) 2.3 % (0-6); HEMOGLOBIN 14.6 g/dL (13.5-17.0); LYMPHOCYTES % (AUTO) 41.4 % (13-45); MEAN CORPUSCULAR HEMOGLOBIN 32.6 pg (27.0-33.4); MEAN CORPUSCULAR HGB CONC 35.5 g/dL (32.0-36.0); MEAN CORPUSCULAR VOLUME 92 fl (80-97); MONOCYTES % (AUTO) 13.2 % (3-13); PLATELET COUNT 194 10^3/uL (150-450); RED BLOOD COUNT 4.47 10^6/uL (4.35-5.55); RED CELL DISTRIBUTION WIDTH 13.1 % (11.5-14.0); SEGMENTED NEUTROPHILS % (AUTO) 42.4 % (42-78); TOTAL CELLS COUNTED % (AUTO) 100 %
[2019-06-24 21:29] LABS: ALBUMIN 4.5 g/dL (3.5-5.0); ALKALINE PHOSPHATASE 44 U/L (38-126); ANION GAP 10 (5-19); ASPARTATE AMINO TRANSFERASE 26 U/L (17-59); BILIRUBIN,TOTAL 0.4 mg/dL (0.2-1.3); BLOOD UREA NITROGEN 22 mg/dL (7-20); CALCIUM 10.1 mg/dL (8.4-10.2); CARBON DIOXIDE 26 mmol/L (22-30); CHLORIDE 101 mmol/L (98-107); CREATINE KINASE 174 U/L (55-170); GLUCOSE 87 mg/dL (75-110); POTASSIUM 4.2 mmol/L (3.6-5.0); TOTAL PROTEIN 7.1 g/dL (6.3-8.2)
[2019-06-24 21:41] LABS: CREATINE KINASE MB 1.16 ng/mL (<4.55)
[2019-06-24 21:47] LABS: TROPONIN I < 0.012 ng/mL
[2019-06-24] MEDS ORDERED: NORMAL SALINE 1000 ML 1,000 ML IV ONE (22:36)
[2019-06-24 23:06] LABS: APPEARANCE,URINE CLEAR; BILIRUBIN,URINE NEGATIVE (NEGATIVE); COLOR,URINE YELLOW; GLUCOSE, URINE NEGATIVE (NEGATIVE); KETONES,URINE NEGATIVE (NEGATIVE); LEUKOCYTE ESTERASE,URINE NEGATIVE (NEGATIVE); NITRITE,URINE NEGATIVE (NEGATIVE); PROTEIN,URINE NEGATIVE (NEGATIVE); URINE SPECIFIC GRAVITY 1.016; UROBILINOGEN,URINE NEGATIVE mg/dL (<2.0)
[2019-06-25 00:14] VITALS: BP 105/66
--- NOTE | 2019-06-25 00:17 | ER Document Report ---
ED General - General Chief Complaint: Syncope Stated Complaint: GENERAL SICKNESS Time Seen by Provider: 06/24/19 22:01 Primary Care Provider: LUIS BAH MD [Primary Care Provider] - Follow up as needed Notes: 18-year-old male presents to the emergency department with a history of at work earlier this afternoon apparently got too hot. States that he was going to open a door when he felt faint coworker caught him before he hit the floor. He took the ambulance and came to the emergency department. He has a history of seizure disorder. Denies any seizure activity today. States that he has been compliant with his medications prescribed Keppra and Depakote. TRAVEL OUTSIDE OF THE [place] IN LAST 30 DAYS: No - Related Data Allergies/Adverse Reactions: Penicillins Allergy (Verified 06/24/19 19:46) novacaine Allergy (Uncoded 11/22/18 12:14) Home Medications: depakote. keppra Past Medical History - Social History Smoking Status: Current Every Day Smoker Chew tobacco use (# tins/day): No Frequency of alcohol use: None Drug Abuse: None Family History: Reviewed & Not Pertinent, Other - Seizure Patient has homicidal ideation: No Neurological Medical History: Reports: Hx Seizures Renal/ Medical History: Denies: Hx Peritoneal Dialysis Psychiatric Medical History: Reports: Hx Attention Deficit Hyperactivity Disorder, Hx Depression - Immunizations Immunizations up to date: Yes Hx Diphtheria, Pertussis, Tetanus Vaccination: No Review of Systems - Review of Systems Notes: Constitutional: Negative for fever. HENT: Negative for sore throat. Eyes: Negative for visual changes. Cardiovascular: Negative for chest pain. Respiratory: Negative for shortness of breath. Gastrointestinal: Negative for abdominal pain, vomiting or diarrhea. Genitourinary: Negative for dysuria. Musculoskeletal: Negative for back pain. Skin: Negative for rash. Neurological: Negative for headaches, weakness or numbness. 10 point ROS negative except as marked above and in HPI. Physical Exam - Vital signs Vitals: Temp Resp Pulse Ox 98.5 F 10 L 99 06/24/19 19:47 06/24/19 19:47 06/24/19 19:47 - Notes Notes: PHYSICAL EXAMINATION: Physical Exam: General: Well-nourished well-developed 18-year-old male in no acute distress HEENT: NC/AT, pupils equal round and reactive to light, MM moist,nares clear, oropharynx clear, airway patent Neck: supple, no adenopathy, no masses. Good range of motion Lungs: clear, no wheezing, no rales no rhonchi CVS: Regular rate and rhythm no murmur gallop or rub Abdomen: Soft, active, nontender, no masses, no hepatosplenomegaly Ext: No edema, clubbing or cyanosis. Neuro: Alert and responsive, moving all 4 extremities on command, cranial nerves intact, no focal findings Skin: Intact no open lesions, no rash PSYCH: Normal mood, normal affect. Course - Re-evaluation Re-evalutation: 06/25/19 00:13 Patient apparently syncopal episode earlier today. Now feeling much better after 2 L of IV fluids and is requesting to go home. - Vital Signs Vital signs: Temp Pulse Resp BP Pulse Ox 98.5 F 19 122/81 100 06/24/19 19:49 06/24/19 19:49 06/24/19 19:49 06/24/19 19:49 - Laboratory Result Diagrams: 06/24/19 21:00 06/24/19 21:00 Laboratory results interpreted by me: 06/24/19 06/24/19 21:00 21:00 [place] % (Auto) 13.2 H Sodium 136.7 L BUN 22 H Creatine Kinase 174 H 06/25/19 00:14 I have reviewed laboratory data and used this information for the treatment decisions regarding the patient. - EKG Interpretation by Me EKG shows normal: Sinus rhythm - Sinus arrhythmia, rate 60, no acute ST or T wave abnormalities noted. Discharge - Discharge Clinical Impression: Syncopal episodes Qualifiers: Syncope type: heat syncope Encounter type: initial encounter Qualified Code(s): T67.1XXA - Heat syncope, initial encounter Heat exhaustion Qualifiers: Encounter type: initial encounter Qualified Code(s): T67.5XXA - Heat exhaustion, unspecified, initial encounter Condition: Good Disposition: HOME, SELF-CARE Instructions: Heat Exhaustion ([facility]), Fainting ([facility]) Additional Instructions: HOME CARE INSTRUCTIONS & INFORMATION: Thank you for choosing us for your medical needs. We hope you're satisfied with the care you received. After you leave, you must properly care for your problem and, at the same time, observe its progress. Any condition can change. Some illnesses can change rapidly over hours or days. If your condition worsens, return to the Emergency Department or see your physician promptly. ABOUT YOUR X-RAYS AND EKG'S: If you had an EKG or X-rays taken, they have been read by the Emergency Physician. The X-rays and EKG's will also be read by a Radiologist or Security System Technician within 24 hours. If discrepancies are noted, you will be notified by telephone. Please be certain the ED has a correct telephone number & address where you can be reached. Also, realize that some fractures or abnormalities do not show up on initial X-rays. If your symptoms continue, see your physician. ABOUT YOUR LABORATORY TEST: If you had laboratory tests, the results have been reviewed by the Emergency Physician. Some test results (for example cultures) may not be available for several days. You will be contacted if any test result shows you need additional treatment. Please be certain the ED has a correct telephone number and address where you can be reached. ABOUT YOUR MEDICATIONS: You will receive instructions on how to take your medicine on the prescription label you receive. Additional information may be provided by the Pharmacy. If you have questions afterwards, call the ED for clarification or further instructions. Some prescribed medications may cause drowsiness. Do not perform tasks such as driving a car or operating machinery without consulting your Pharmacist. If you feel you need a refill of pain medication, your condition will need re-evaluation. Please do not call for a refill of any medication. ABOUT YOUR SIGNATURE: Signature of this document acknowledges to followin. Understanding that you received emergency treatment and that you may be released before al medical problems are known or treated. Please be certain the ED has a correct phone number & address where you can be reached. 2. Acknowledgement that you will arrange for follow-up care as recommended. 3. Authorization for the Emergency Physician to provide information to your follow-up Physician in order to maximize your care. AT ANY TIME, IF YOUR SYMPTOMS CHANGE SIGNIFICANTLY OR WORSEN OR YOU DEVELOP NEW SYMPTOMS, RETURN TO THE EMERGENCY DEPARTMENT IMMEDIATELY FOR RE-EVALUATION. OUR GOAL IS TO PROVIDE EXCELLENT MEDICAL CARE! WE HOPE THAT WE HAVE MET YOUR EXPECTATIONS DURING YOUR EMERGENCY DEPARTMENT VISIT AND THAT YOU FEEL YOU HAVE RECEIVED EXCELLENT CARE! Referrals: LUIS BAH MD [Primary Care Provider] - Follow up as needed
--- NOTE | 2019-06-25 06:59 | EKG REPORT ---
SEVERITY:- ABNORMAL ECG - SINUS ARRHYTHMIA, RATE 48-68 PROBABLE RIGHT VENTRICULAR HYPERTROPHY : Confirmed by: Wilder Kuhn MD 25-Jun-2019 06:58:48
== END 2019-06-25 00:20 | disposition home or self-care (01) ==
LOC: ER 19:39
DX: T67.5XXA Heat exhaustion, unspecified, initial encounter (principal); T67.1XXA Heat syncope, initial encounter; F17.200 Nicotine dependence, unspecified, uncomplicated; X30.XXXA Exposure to excessive natural heat, initial encounter; Y99.0 Civilian activity done for income or pay; Z88.0 Allergy status to penicillin
CPT/HCPCS: 93005; 99284; 36415; 82553; 82550; 85025; 80053; 81001; 84484; 93010; J7030

== ENCOUNTER → 2019-08-11 | Outpatient (CLI) | payer MEDICAID ==
--- NOTE | 2019-08-11 12:57 | RADIOLOGY REPORT (SQ) ---
EXAM DESCRIPTION: ELBOW RIGHT >2 VIEWS IMAGES COMPLETED DATE/TIME: 08/11/2019 11:44 am REASON FOR STUDY: UNSPECIFIED INJURY OF RIGHT FOREARM, INITIAL ENCOUNTER S59.911A UNSPECIFIED INJUR Y OF RIGHT FOREARM, INITIAL ENCOUN COMPARISON: None. NUMBER OF VIEWS: Four views. TECHNIQUE: AP, lateral, and both oblique radiographic images acquired of the right elbow. LIMITATIONS: None. FINDINGS: MINERALIZATION: Normal. BONES: No acute fracture or dislocation. No worrisome bone lesions. JOINT: No effusion. SOFT TISSUES: No soft tissue swelling. No foreign body. OTHER: No other significant finding. IMPRESSION: NEGATIVE STUDY OF THE RIGHT ELBOW. NO RADIOGRAPHIC EVIDENCE OF ACUTE INJURY. TECHNICAL DOCUMENTATION: JOB ID: [id number] 2010 [employer]- All Rights Reserved Reading location - IP/workstation name: [email or web address]
== END ==
LOC: OD 11:28
PROVIDERS: ATTEND Nurse Practitioner Acute Care
DX: S59.911A Unspecified injury of right forearm, initial encounter (principal); X58.XXXA Exposure to other specified factors, initial encounter; Y93.9 Activity, unspecified; Y92.9 Unspecified place or not applicable

== ENCOUNTER 2019-09-15 13:14 | Emergency (ER) | payer MEDICAID ==
[2019-09-15 13:59] LABS: ABSOLUTE EOSINOPHILS # (AUTO) 0.2 10^3/uL (0.0-0.6); ABSOLUTE LYMPHOCYTES (AUTO) 2.6 10^3/uL (0.5-4.7); ABSOLUTE MONOCYTES (AUTO) 0.5 10^3/uL (0.1-1.4); ABSOLUTE NEUT (AUTO) 3.7 10^3/uL (1.7-8.2); BASOPHILS % (AUTO) 0.5 % (0-2); EOSINOPHILS % (AUTO) 2.4 % (0-6); HEMATOCRIT 43.1 % (37.9-51.0); HEMOGLOBIN 14.9 g/dL (13.5-17.0); LYMPHOCYTES % (AUTO) 36.5 % (13-45); MEAN CORPUSCULAR HEMOGLOBIN 32.2 pg (27.0-33.4); MEAN CORPUSCULAR HGB CONC 34.5 g/dL (32.0-36.0); MEAN CORPUSCULAR VOLUME 93 fl (80-97); MONOCYTES % (AUTO) 7.4 % (3-13); PLATELET COUNT 186 10^3/uL (150-450); RED BLOOD COUNT 4.63 10^6/uL (4.35-5.55); RED CELL DISTRIBUTION WIDTH 12.7 % (11.5-14.0); SEGMENTED NEUTROPHILS % (AUTO) 53.2 % (42-78); TOTAL CELLS COUNTED % (AUTO) 100 %
[2019-09-15 14:16] LABS: ALBUMIN 4.5 g/dL (3.5-5.0); ALKALINE PHOSPHATASE 47 U/L (38-126); ANION GAP 6 (5-19); ASPARTATE AMINO TRANSFERASE 24 U/L (17-59); BILIRUBIN,TOTAL 0.4 mg/dL (0.2-1.3); BLOOD UREA NITROGEN 17 mg/dL (7-20); CALCIUM 10.8 mg/dL (8.4-10.2); CARBON DIOXIDE 27 mmol/L (22-30); CHLORIDE 104 mmol/L (98-107); CREATINE KINASE 89 U/L (55-170); GLUCOSE 95 mg/dL (75-110); POTASSIUM 4.5 mmol/L (3.6-5.0); TOTAL PROTEIN 7.2 g/dL (6.3-8.2)
[2019-09-15] MEDS ORDERED: NORMAL SALINE 1000 ML 1,000 ML IV ONE (14:24)
[2019-09-15 14:27] LABS: CREATINE KINASE MB 0.88 ng/mL (<4.55)
[2019-09-15] MEDS ORDERED: LORAZEPAM INJ 2 MG/1 ML VIAL IV ONE (14:28)
--- NOTE | 2019-09-15 14:32 | EKG REPORT ---
SEVERITY:- NORMAL ECG - SINUS RHYTHM ST ELEV, PROBABLE NORMAL EARLY REPOL PATTERN : Confirmed by: Kim Felder MD 15-Sep-2019 14:32:05
[2019-09-15 14:34] LABS: TROPONIN I < 0.012 ng/mL
--- NOTE | 2019-09-15 14:52 | RADIOLOGY REPORT (SQ) ---
EXAM DESCRIPTION: CHEST SINGLE VIEW IMAGES COMPLETED DATE/TIME: 09/15/2019 2:44 pm REASON FOR STUDY: seizure COMPARISON: None. EXAM PARAMETERS: NUMBER OF VIEWS: One view. TECHNIQUE: Single frontal radiographic view of the chest acquired. RADIATION DOSE: NA LIMITATIONS: None. FINDINGS: LUNGS AND PLEURA: No opacities, masses or pneumothorax. No pleural effusion. MEDIASTINUM AND HILAR STRUCTURES: No masses. Contour normal. HEART AND VASCULAR STRUCTURES: Heart normal in size. Normal vasculature. BONES: No acute findings. HARDWARE: None in the chest. OTHER: No other significant finding. IMPRESSION: 1. NO ACUTE RADIOGRAPHIC FINDING IN THE CHEST. TECHNICAL DOCUMENTATION: JOB ID: [id number] 2010 [employer]- All Rights Reserved Reading location - IP/workstation name: [email or web address]
--- NOTE | 2019-09-15 15:18 | RADIOLOGY REPORT (SQ) ---
EXAM DESCRIPTION: CT HEAD WITHOUT IMAGES COMPLETED DATE/TIME: 09/15/2019 3:10 pm REASON FOR STUDY: seizure COMPARISON: None. TECHNIQUE: Axial images acquired through the brain without intravenous contrast. Images reviewed wi th bone, brain and subdural windows. Additional sagittal and coronal reconstructions were generated. Images stored on PACS. All CT scanners at this facility use dose modulation, iterative reconstruction, and/or weight based d osing when appropriate to reduce radiation dose to as low as reasonably achievable (ALARA). [facility]: Dose Right [facility]: CareDose [facility]: Dose Right [facility]: Teradose 4D [facility]: Tivity RADIATION DOSE: CT Rad equipment meets quality standard of care and radiation dose reduction techniq ues were employed. CTDIvol: 53.2 mGy. DLP: 1097 mGy-cm. mGy. LIMITATIONS: None. FINDINGS: VENTRICLES: Normal size and contour. CEREBRUM: No masses. No hemorrhage. No midline shift. No evidence for acute infarction. Normal gra y/white matter differentiation. No areas of low density in the white matter. CEREBELLUM: No masses. No hemorrhage. No alteration of density. No evidence for acute infarction. EXTRAAXIAL SPACES: No fluid collections. No masses. ORBITS AND GLOBE: No intra- or extraconal masses. Normal contour of globe without masses. CALVARIUM: No fracture. PARANASAL SINUSES: No fluid or mucosal thickening. SOFT TISSUES: No mass or hematoma. OTHER: No other significant finding. IMPRESSION: NORMAL BRAIN CT WITHOUT CONTRAST. EVIDENCE OF ACUTE STROKE: NO. COMMENT: Quality ID # [id number]: Final reports with documentation of one or more dose reduction techniques (e.g., Automated exposure control, adjustment of the mA and/or kV according to patient size, use of iterative reconstruction technique) TECHNICAL DOCUMENTATION: JOB ID: [id number] 2010 [employer]- All Rights Reserved Reading location - IP/workstation name: [email or web address]
[2019-09-15 15:45] LABS: APPEARANCE,URINE CLEAR; BILIRUBIN,URINE NEGATIVE (NEGATIVE); COLOR,URINE YELLOW; GLUCOSE, URINE NEGATIVE (NEGATIVE); KETONES,URINE TRACE mg/dL (NEGATIVE); LEUKOCYTE ESTERASE,URINE NEGATIVE (NEGATIVE); NITRITE,URINE NEGATIVE (NEGATIVE); PROTEIN,URINE NEGATIVE (NEGATIVE); URINE SPECIFIC GRAVITY 1.021; UROBILINOGEN,URINE NEGATIVE mg/dL (<2.0)
[2019-09-15 16:01] LABS: URINE AMPHETAMINES SCREEN NEGATIVE; URINE BARBITURATES SCREEN NEGATIVE; URINE BENZODIAZEPINES SCREEN NEGATIVE; URINE COCAINE SCREEN NEGATIVE; URINE MARIJUANA (THC) SCREEN NEGATIVE; URINE METHADONE SCREEN NEGATIVE; URINE PHENCYCLIDINE SCREEN NEGATIVE
--- NOTE | 2019-09-15 17:16 | ER Document Report ---
Entered by BRITTANI FISHER SCRIBE 09/15/19 1427 Acting as scribe for:AUSTIN FOWLER MD ED Seizure - General Chief Complaint: Seizure Stated Complaint: SYNCOPE Primary Care Provider: SANJIV BURKS NP [Primary Care Provider] - Follow up as needed Information source: Patient Notes: This 18 year old male patient presents to the emergency department today with complaints of a seizure today while at work. Patient states he has had seizures most of his life and he has "not had one in so long that he can't remember when it was". He states that he takes depakote and keppra both daily and has not missed any medications. Patient mentions that he rides his bike to work and sweats a lot and he thinks that he may be "sweat out" his medication. Patient did not bite his tongue and there was no urinary incontinence. EMS states when they arrived on scene the patient was sitting in the freezer to cool off. Patient states he does not remember any of that, that he only remembers being in the back of the ambulance. - Related Data Allergies/Adverse Reactions: Penicillins Allergy (Verified 09/15/19 14:03) novacaine Allergy (Uncoded 09/15/19 14:03) Past Medical History - General Information source: Patient - Social History Smoking Status: Current Every Day Smoker Cigarette use (# per day): Yes Drug Abuse: Marijuana Lives with: Spouse/Significant other Family History: Reviewed & Not Pertinent, Other - Seizure Neurological Medical History: Reports: Hx Seizures - on both depakote and keppra Psychiatric Medical History: Reports: Hx Attention Deficit Hyperactivity Disorder, Hx Depression Surgical Hx: Negative - Immunizations Immunizations up to date: Yes Hx Diphtheria, Pertussis, Tetanus Vaccination: No Review of Systems - Review of Systems Constitutional: No symptoms reported EENT: No symptoms reported Cardiovascular: No symptoms reported Respiratory: No symptoms reported Gastrointestinal: No symptoms reported Genitourinary: No symptoms reported Male Genitourinary: No symptoms reported Musculoskeletal: No symptoms reported Skin: No symptoms reported Hematologic/Lymphatic: No symptoms reported Neurological/Psychological: See HPI, Seizure -: Yes All other systems reviewed and negative Physical Exam - Vital signs Vitals: Temp 98.3 F 09/15/19 13:14 - Notes Notes: Physical Exam: General: Alert, appears well. HEENT: Normocephalic. Atraumatic. PERRL. Extraocular movements intact. Oropharynx clear. Neck: Supple. Non-tender. Respiratory: No respiratory distress. Clear and equal breath sounds bilaterally. Cardiovascular: Regular rate and rhythm. Abdominal: Normal Inspection. Non-tender. No distension. Normal Bowel Sounds. Back: No gross abnormalities. Extremities: Moves all four extremities. Upper extremities: Normal inspection. Normal ROM. Lower extremities: Normal inspection. No edema. Normal ROM. Neurological: Normal cognition. AAOx4. Normal speech. Psychological: Normal affect. Normal Mood. Skin: Warm. Dry. Normal color. Course - Re-evaluation Re-evalutation: 09/15/19 17:11 Patient resting comfortably not showing any signs of distress there is been no seizure activity while in the department. - Vital Signs Vital signs: Temp Pulse Resp BP Pulse Ox 98.3 F 16 121/58 L 100 09/15/19 13:14 09/15/19 15:08 09/15/19 15:08 09/15/19 15:08 Vital signs stable - Laboratory Result Diagrams: 09/15/19 12:53 09/15/19 12:53 Laboratory results interpreted by me: 09/15/19 09/15/19 12:53 15:38 Calcium 10.8 H Urine Ketones TRACE H 09/15/19 17:11 Laboratories within normal range. Patient has a valproic acid level of 80. 09/15/19 17:13 Normal troponin level patient has no chest pain. - Diagnostic Test Radiology reviewed: Image reviewed, Reports reviewed Radiology results interpreted by me: 09/15/19 17:11 CT scan of head showed no acute process no evidence for stroke no evidence of trauma. 09/15/19 17:12 Chest x-ray shows no acute process. - EKG Interpretation by Me Additional EKG results interpreted by me: 09/15/19 17:13 Twelve-lead EKG shows normal sinus rhythm and early re-pole changes no acute STEMI Discharge - Discharge Clinical Impression: Seizure disorder, Dehydration after exertion Condition: Stable Disposition: HOME, SELF-CARE Additional Instructions: Seizure, Known Epileptic You have had a seizure. Seizures may "break through" in an epileptic due to stress of infection or injury, a change in blood chemistry, or drug and alcohol use. Another common cause is failure to take medication as prescribed. Your doctor has evaluated your situation for the likely cause of this sei zure. It is important that you follow his advice concerning any medication changes and follow-up care. Further testing of anti-seizure medication levels in your blood may be necessary. 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 This seizure must be reported to the commercial truck driver's license bureau. Call the doctor or return if seizures recur, or if new or unusual symptoms arise -- such as severe headache, confusion, excessive sleepiness, local weakness or numbness, neck stiffness, or fever. Continue same medications that you take for seizures. Follow-up with your primary care physician. There are no new prescriptions today at this time. Forms: Return to Work Referrals: SANJIV BURKS NP [Primary Care Provider] - Follow up as needed I personally performed the services described in the documentation, reviewed and edited the documentation which was dictated to the scribe in my presence, and it accurately records my words and actions.
[2019-09-15 17:33] VITALS: BP 101/52
== END 2019-09-15 17:40 | disposition home or self-care (01) ==
LOC: ER 13:14
DX: G40.909 Epilepsy, unspecified, not intractable, without status epilepticus (principal); E86.0 Dehydration; F17.210 Nicotine dependence, cigarettes, uncomplicated; Z88.0 Allergy status to penicillin
CPT/HCPCS: 93005; 99285; 96361; 96374; 36415; 82553; 80307 ×2; 82550; 85025; 80053; 81001; 84484; 80164; 71045; 70450; 93010; J2060; J7030

== ENCOUNTER 2019-10-22 11:25 | Emergency (ER) | payer MEDICAID ==
[2019-10-22] MEDS ORDERED: NORMAL SALINE 1000 ML 1,000 ML IV ONE (12:08)
[2019-10-22] MEDS ORDERED: ONDANSETRON HCL INJ/PF 4 MG/2 ML SDV IV ONE (12:09)
[2019-10-22] MEDS ORDERED: KETOROLAC TROMETHAMINE INJ/PF 30 MG/1 ML SDV IV ONE (12:10)
--- NOTE | 2019-10-22 12:31 | ER Document Report ---
ED GI/ - General Chief Complaint: Nausea/Vomiting/Diarrhea Stated Complaint: ABDOMINAL PAIN/VOMITING Time Seen by Provider: 10/22/19 11:32 Primary Care Provider: LUIS BAH MD [Primary Care Provider] - Follow up as needed TRAVEL OUTSIDE OF THE [place] IN LAST 30 DAYS: No - HPI Patient complains to provider of: Abdominal pain, Diarrhea, Vomiting. No: Testicular pain, Urinary retention Onset: Yesterday Timing/Duration: Intermittent Location: Epigastric Associated symptoms: Nausea, Radiates to chest, Vomiting. denies: Blood in emesis, Blood in stool, Dysuria, Fever, Loss of appetite, Syncope Exacerbated by: Denies Notes: 10/22/19 12:26 Patient is a 18-year-old male with a past medical history of seizures who pres ents with abdominal pain and vomiting. Patient had a big meal for dinner yesterday and states he had emesis afterwards 2 times. Also had diarrhea. No blood in the diarrhea or emesis. Complains of periumbilical abdominal pain. He denies cough or nasal congestion. No sore throat. No fever or chills. Patient denies any known sick contacts or any known contacts with COVID-19. However, he does work at [email or web address] and is around the public. He mentioned an episode of chest tightness yesterday that has completely resolved. 10/22/19 14:04 10/22/19 16:37 - Related Data Allergies/Adverse Reactions: Penicillins Allergy (Verified 10/22/19 11:45) novacaine Allergy (Uncoded 09/15/19 14:03) Past Medical History - Social History Smoking Status: Current Every Day Smoker Chew tobacco use (# tins/day): No Frequency of alcohol use: None Drug Abuse: None Family History: Reviewed & Not Pertinent, Other - Seizure Neurological Medical History: Reports: Hx Seizures - on both depakote and keppra Renal/ Medical History: Denies: Hx Peritoneal Dialysis Psychiatric Medical History: Reports: Hx Attention Deficit Hyperactivity Disorder, Hx Depression - Immunizations Immunizations up to date: Yes Hx Diphtheria, Pertussis, Tetanus Vaccination: No Review of Systems - Review of Systems Constitutional: denies: Chills, Fever, Weakness, Recent illness EENT: denies: Ear pain, Nose congestion, Nose discharge Cardiovascular: denies: Chest pain, Dizziness, Lightheaded Respiratory: denies: Cough, Hurts to breathe, Short of breath Gastrointestinal: Abdominal pain, Diarrhea, Nausea, Vomiting. denies: Blood in vomit, Rectal bleeding Genitourinary: denies: Burning, Dysuria, Flank pain Male Genitourinary: denies: Testicular pain Musculoskeletal: denies: Back pain, Muscle pain Skin: denies: Lesions, Rash Neurological/Psychological: No symptoms reported, Seizure Physical Exam - Vital signs Vitals: Temp Pulse Resp BP Pulse Ox 97.9 F 66 16 108/65 96 10/22/19 11:46 10/22/19 11:46 10/22/19 11:46 10/22/19 11:46 10/22/19 11:46 Interpretation: Normal - General General appearance: Appears well In distress: None - HEENT Head: Normocephalic, Atraumatic Eyes: Normal Conjunctiva: Normal Ears: Normal Neck: Normal - Respiratory Respiratory status: No respiratory distress. No: Cyanosis, Labored, Tachypnea Breath sounds: Normal. No: Decreased air movement, Rhonchi, Stridor, Wheezing - Cardiovascular Heart sounds: Normal auscultation Murmur: No - Abdominal Distension: No distension Tenderness: Tender - Discomfort to jin umbilical palpation - Extremities General upper extremity: Normal inspection, Nontender, Normal strength General lower extremity: Normal inspection, Nontender, Normal strength - Neurological Orientation: AAOx4 Speech: Normal - Psychological Associated symptoms: Normal affect, Normal mood - Skin Skin Temperature: Warm Skin Moisture: Dry Skin Color: Normal Course - Re-evaluation Re-evalutation: 10/22/19 15:34 Patient's lab work was reviewed. CT was obtained as he did have periumbilical tenderness on exam to rule out appendicitis. 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 Patient was told to quarantine until he gets a negative result. He was provided with a work note for 5 days until he is called with the results. Patient feels much better on reassessment. States his abdominal pain and nausea are gone. He is asking for a snack. I discussed all results with the patient. Told to return to the ER if symptoms re occur. He verbalized understanding of all instructions. 10/22/19 16:34 - Vital Signs Vital signs: Temp Pulse Resp BP Pulse Ox 97.9 F 66 16 108/65 96 10/22/19 11:46 10/22/19 11:46 10/22/19 11:46 10/22/19 11:46 10/22/19 11:46 - Laboratory Result Diagrams: 10/22/19 12:24 10/22/19 12:24 Laboratory results interpreted by me: 10/22/19 10/22/19 12:24 13:29 Carbon Dioxide 31 H Urine Protein 100 H Urine Ketones 20 H Urine Urobilinogen 2.0 H - EKG Interpretation by Me EKG shows normal: Sinus rhythm Rate: Bradycardia When compared to previous EKG there are: No significant change Additional EKG results interpreted by me: 10/22/19 12:36 Sinus bradycardia at a rate of 48. QTc 394. Nonspecific T changes. EKG is similar to previous. Discharge - Discharge Clinical Impression: Abdominal pain Qualifiers: Abdominal location: periumbilical Qualified Code(s): R10.33 - Periumbilical pain Vomiting Qualifiers: Vomiting type: unspecified Vomiting Intractability: unspecified Nausea presence: with nausea Qualified Code(s): R11.2 - Nausea with vomiting, unspecified Condition: Good Disposition: HOME, SELF-CARE Instructions: Abdominal Pain ([facility]) Additional Instructions: You were tested for COVID-19. You must self isolate until you are called with a negative result. You will receive a work note. Please return if you have any cough or shortness of breath or worsening symptoms. Forms: Parent Work Note Referrals: LUIS BAH MD [Primary Care Provider] - Follow up as needed
--- NOTE | 2019-10-22 12:32 | RADIOLOGY REPORT (SQ) ---
EXAM DESCRIPTION: CHEST SINGLE VIEW IMAGES COMPLETED DATE/TIME: 10/22/2019 12:23 pm REASON FOR STUDY: chest pain COMPARISON: 09/15/2019 EXAM PARAMETERS: NUMBER OF VIEWS: One view. TECHNIQUE: Single frontal radiographic view of the chest acquired. RADIATION DOSE: NA LIMITATIONS: None. FINDINGS: LUNGS AND PLEURA: No opacities, masses or pneumothorax. No pleural effusion. MEDIASTINUM AND HILAR STRUCTURES: No masses. Contour normal. HEART AND VASCULAR STRUCTURES: Heart normal in size. Normal vasculature. BONES: No acute findings. HARDWARE: None in the chest. OTHER: No other significant finding. IMPRESSION: NO ACUTE RADIOGRAPHIC FINDING IN THE CHEST. TECHNICAL DOCUMENTATION: JOB ID: [id number] 2010 [employer]- All Rights Reserved Reading location - IP/workstation name: [email or web address]
[2019-10-22 12:42] LABS: ABSOLUTE EOSINOPHILS # (AUTO) 0.1 10^3/uL (0.0-0.6); ABSOLUTE LYMPHOCYTES (AUTO) 1.8 10^3/uL (0.5-4.7); ABSOLUTE MONOCYTES (AUTO) 0.5 10^3/uL (0.1-1.4); ABSOLUTE NEUT (AUTO) 4.4 10^3/uL (1.7-8.2); BASOPHILS % (AUTO) 0.5 % (0-2); EOSINOPHILS % (AUTO) 0.9 % (0-6); HEMATOCRIT 43.9 % (37.9-51.0); HEMOGLOBIN 15.3 g/dL (13.5-17.0); LYMPHOCYTES % (AUTO) 26.6 % (13-45); MEAN CORPUSCULAR HGB CONC 34.9 g/dL (32.0-36.0); MEAN CORPUSCULAR VOLUME 92 fl (80-97); PLATELET COUNT 220 10^3/uL (150-450); RED BLOOD COUNT 4.78 10^6/uL (4.35-5.55); RED CELL DISTRIBUTION WIDTH 12.6 % (11.5-14.0); TOTAL CELLS COUNTED % (AUTO) 100 %; WHITE BLOOD COUNT 6.7 10^3/uL (4.0-10.5)
[2019-10-22 13:00] LABS: ALBUMIN 4.6 g/dL (3.5-5.0); ALKALINE PHOSPHATASE 51 U/L (38-126); ANION GAP 8 (5-19); ASPARTATE AMINO TRANSFERASE 20 U/L (17-59); BILIRUBIN,DIRECT 0.2 mg/dL (0.0-0.4); BILIRUBIN,TOTAL 0.6 mg/dL (0.2-1.3); BLOOD UREA NITROGEN 16 mg/dL (7-20); CALCIUM 9.9 mg/dL (8.4-10.2); CARBON DIOXIDE 31 mmol/L (22-30); CHLORIDE 102 mmol/L (98-107); GLUCOSE 88 mg/dL (75-110); POTASSIUM 4.2 mmol/L (3.6-5.0); TOTAL PROTEIN 7.5 g/dL (6.3-8.2)
[2019-10-22 13:42] LABS: APPEARANCE,URINE CLEAR; BILIRUBIN,URINE NEGATIVE (NEGATIVE); COLOR,URINE YELLOW; GLUCOSE, URINE NEGATIVE (NEGATIVE); KETONES,URINE 20 mg/dL (NEGATIVE); LEUKOCYTE ESTERASE,URINE NEGATIVE (NEGATIVE); NITRITE,URINE NEGATIVE (NEGATIVE); PROTEIN,URINE 100 mg/dL (NEGATIVE); URINE SPECIFIC GRAVITY 1.033
[2019-10-22 13:48] LABS: ADD MANUAL MICROSCOPIC YES; RBC,URINE RARE /HPF; WBC,URINE RARE /HPF
--- NOTE | 2019-10-22 15:21 | EKG REPORT ---
SEVERITY:- ABNORMAL ECG - SINUS BRADYCARDIA NONSPECIFIC T ABNORMALITIES, LATERAL LEADS : Confirmed by: Wilder Kuhn MD 22-Oct-2019 15:20:44
--- NOTE | 2019-10-22 16:18 | RADIOLOGY REPORT (SQ) ---
EXAM DESCRIPTION: CT ABD/PELVIS WITH IV ONLY IMAGES COMPLETED DATE/TIME: 10/22/2019 2:59 pm REASON FOR STUDY: abdominal pain, periumbilical with vomiting. Epigastric pain. COMPARISON: None. TECHNIQUE: CT scan of the abdomen and pelvis performed using helical scanning technique with dynamic intravenous contrast injection. No oral contrast. Images reviewed with lung, soft tissue, and bone windows. Reconstructed coronal and sagittal MPR images reviewed. Delayed images for evaluation of the urinary system also acquired. All images stored on PACS. All CT scanners at this facility use dose modulation, iterative reconstruction, and/or weight based d osing when appropriate to reduce radiation dose to as low as reasonably achievable (ALARA). [facility]: Dose Right [facility]: CareDose [facility]: Dose Right [facility]: Teradose 4D [facility]: [employer] CONTRAST TYPE AND DOSE: contrast/concentration: Isovue 350.00 mmol/ml; Total Contrast Delivered: 77. 9 ml; Total Saline Delivered: 67.0 ml RENAL FUNCTION: Greater than 60 RADIATION DOSE: CT Rad equipment meets quality standard of care and radiation dose reduction techniq ues were employed. CTDIvol: 5.1 - 6.2 mGy. DLP: 656 mGy-cm.. LIMITATIONS: None. FINDINGS: LOWER CHEST: No significant findings. No nodules or infiltrates. LIVER: Normal size. No masses. No dilated ducts. SPLEEN: Normal size. No focal lesions. PANCREAS: No masses. No significant calcifications. No adjacent inflammation or peripancreatic fluid collections. Pancreatic duct not dilated. GALLBLADDER: No identified stones by CT criteria. No inflammatory changes to suggest cholecystitis. ADRENAL GLANDS: No significant masses or asymmetry. RIGHT KIDNEY AND URETER: No solid masses. No significant calcifications. No hydronephrosis or hyd roureter. LEFT KIDNEY AND URETER: No solid masses. No significant calcifications. No hydronephrosis or hydr oureter. AORTA AND VESSELS: No aneurysm. No dissection. Renal arteries, SMA, celiac without stenosis. RETROPERITONEUM: No retroperitoneal adenopathy, hemorrhage or masses. BOWEL AND PERITONEAL CAVITY: No masses or inflammatory changes. No free fluid or peritoneal masses. APPENDIX: Normal. PELVIS: No mass. No free fluid. Normal bladder. ABDOMINAL WALL: No masses. No hernias. BONES: No significant or acute findings. OTHER: No other significant finding. IMPRESSION: NO SIGNIFICANT OR ACUTE FINDING IN THE ABDOMEN OR PELVIS ON CT SCAN WITH IV CONTRAST. TECHNICAL DOCUMENTATION: JOB ID: [id number] Quality ID # [id number]: Final reports with documentation of one or more dose reduction techniques (e.g., Au tomated exposure control, adjustment of the mA and/or kV according to patient size, use of iterative reconstruction technique) 2010 [employer]- All Rights Reserved Reading location - IP/workstation name: [email or web address]
[2019-10-22 16:44] VITALS: BP 122/59
== END 2019-10-22 16:56 | disposition home or self-care (01) ==
LOC: ER 11:25
DX: R10.33 Periumbilical pain (principal); R11.2 Nausea with vomiting, unspecified; R19.7 Diarrhea, unspecified; R10.9 Unspecified abdominal pain; R07.9 Chest pain, unspecified; Z88.0 Allergy status to penicillin; Z20.828 Contact with and (suspected) exposure to other viral communicable diseases
CPT/HCPCS: 93005; 99285; 96361; 96374; 96375; 36415; 83690; 85025; 87635; 80076; 80048; 81001; 84484; 71045; 74177; 93010; J1885; J2405; J7030; C9803

== ENCOUNTER 2019-12-27 11:52 | Emergency (ER) | payer MEDICAID ==
[2019-12-27 12:29] VITALS: BP 114/59
--- NOTE | 2019-12-27 12:30 | ER Document Report ---
ED General - General Chief Complaint: Probable Seizure Stated Complaint: POSSIBLE SEIZURE Time Seen by Provider: 12/27/19 12:30 Primary Care Provider: LUIS BAH MD [Primary Care Provider] - Follow up as needed TRAVEL OUTSIDE OF THE [place] IN LAST 30 DAYS: No - HPI Notes: 19-year-old male presents to the emergency room today for evaluation of a seizure while he was riding his bike to work, he states it was a kind of seizure that he could "ride through, it was not that bad". When he arrived at work this morning, he stated he started to have another one in a customer noted it and stated it was a "bad seizure". Denies losing consciousness. Patient denies having grand mal seizures. States sometimes he can lose consciousness but usually he does not. Patient states he does take Keppra and Depakote, is unsure of the dosage. He states he did take his medications today, did not take it yesterday. Denies any head trauma or change in level consciousness. Patient states he does not have a neurologist, he follows with his primary care provider, Dr. Dior. Denies any chest pain, shortness of breath, nausea, vomiting, diarrhea, abdominal pain, blurred vision, double vision, loss of vision, bowel or bladder incontinences, saddle anesthesia. Denies any illicit drug use - Related Data Allergies/Adverse Reactions: Penicillins Allergy (Verified 10/22/19 11:45) novacaine Allergy (Uncoded 09/15/19 14:03) Home Medications: keppra, depakote Past Medical History - General Information source: Patient - Social History Smoking Status: Current Every Day Smoker Chew tobacco use (# tins/day): No Frequency of alcohol use: None Drug Abuse: Marijuana Family History: Reviewed & Not Pertinent, Other - Seizure Neurological Medical History: Reports: Hx Seizures - on both depakote and keppra Renal/ Medical History: Denies: Hx Peritoneal Dialysis Psychiatric Medical History: Reports: Hx Attention Deficit Hyperactivity Disorder, Hx Depression - Immunizations Immunizations up to date: Yes Hx Diphtheria, Pertussis, Tetanus Vaccination: No Review of Systems - Review of Systems Constitutional: No symptoms reported EENT: No symptoms reported Cardiovascular: No symptoms reported Respiratory: No symptoms reported Gastrointestinal: No symptoms reported Genitourinary: No symptoms reported Male Genitourinary: No symptoms reported Musculoskeletal: No symptoms reported Skin: No symptoms reported Hematologic/Lymphatic: No symptoms reported Neurological/Psychological: See HPI Physical Exam - Vital signs Vitals: Temp Pulse Resp BP Pulse Ox 98.0 F 71 16 114/59 L 95 12/27/19 12:23 12/27/19 12:23 12/27/19 12:23 12/27/19 12:23 12/27/19 12:23 - Notes Notes: MEDICATIONS: I agree with the patient medications as charted by the RN. ALLERGIES: I agree with the allergies as charted by the RN. PAST MEDICAL HISTORY/PAST SURGICAL HISTORY: Reviewed and agree as charted by RN. SOCIAL HISTORY: Reviewed and agree as charted by RN. FAMILY HISTORY: No significant familial comorbid conditions directly related to patient complaint EXAM: Reviewed vital signs as charted by RN. PHYSICAL EXAMINATION:reviewed vital signs by RN GENERAL: Well-appearing, well-nourished and in no acute distress. HEAD: Atraumatic, normocephalic. EYES: Pupils equal round and reactive to light, extraocular movements intact, sc hernando anicteric, conjunctiva are normal. Patient is excessively blinking ENT: Nares patent, oropharynx clear without exudates. Moist mucous membranes. NECK: Normal range of motion, supple without lymphadenopathy LUNGS: Breath sounds clear to auscultation bilaterally and equal. No wheezes rales or rhonchi. HEART: Regular rate and rhythm without murmurs ABDOMEN: Soft, nontender, nondistended abdomen. No guarding, no rebound. No masses appreciated. Musculoskeletal: Normal range of motion, no pitting or edema. No cyanosis. NEUROLOGICAL: Cranial nerves grossly intact. Normal speech, normal gait. Normal sensory, motor exams PSYCH: Normal mood, normal affect. SKIN: Warm, Dry, normal turgor, no rashes or lesions noted. Course - Re-evaluation Re-evalutation: 12/27/19 14:07 Afebrile vital stable no distress. Nurses notes reviewed. Awaiting for labs as well as medication.1400-patient states that he "has things to do and he does not want to stay" discussed at length the risks of leaving without receiving his b lood work and finding of the dose of his Depakote and Keppra. Discussed with patient that he absolutely needs to follow-up with a neurologist, he may need to have his medications increased. After performing a Medical Screening Examination, I spoke with the patient at length in regards to leaving the hospital against medical advice. I discussed evaluation for their presenting complaint and recommended further evaluation. I do not believe the patient should leave but the patient is alert oriented x4, understands the risks and benefits of staying and leaving including disability and . Pt understands that they can return at any time for further care and is more than welcome to do so. Pt verbalizes this understanding. - Vital Signs Vital signs: Temp Pulse Resp BP Pulse Ox 98.0 F 71 16 114/59 L 95 12/27/19 12:23 12/27/19 12:23 12/27/19 12:23 12/27/19 12:23 12/27/19 12:23 - Laboratory Result Diagrams: 12/27/19 13:10 12/27/19 13:10 Laboratory results interpreted by me: 12/27/19 13:15 Urine Protein 30 H Urine Ketones TRACE H Urine Urobilinogen 2.0 H Discharge - Discharge Clinical Impression: Seizures Condition: Stable Disposition: AGAINST MEDICAL ADVICE Referrals: LUIS BAH MD [Primary Care Provider] - Follow up as needed HAMZAH WHITE MD [NO LOCAL MD] - Follow up in 3-5 days
[2019-12-27] MEDS ORDERED: LEVETIRACETAM 1000 MG/NACL-ISO 1,000 MG/100 ML RTUPB IV ONE (13:18)
[2019-12-27] MEDS ORDERED: DIVALPROEX SODIUM 500 MG TAB.SR.24H PO ONE (13:19)
[2019-12-27 13:32] LABS: ABSOLUTE EOSINOPHILS # (AUTO) 0.1 10^3/uL (0.0-0.6); ABSOLUTE LYMPHOCYTES (AUTO) 1.5 10^3/uL (0.5-4.7); ABSOLUTE MONOCYTES (AUTO) 0.5 10^3/uL (0.1-1.4); ABSOLUTE NEUT (AUTO) 3.4 10^3/uL (1.7-8.2); BASOPHILS % (AUTO) 0.6 % (0-2); EOSINOPHILS % (AUTO) 1.1 % (0-6); HEMATOCRIT 41.3 % (37.9-51.0); HEMOGLOBIN 14.3 g/dL (13.5-17.0); LYMPHOCYTES % (AUTO) 26.7 % (13-45); MEAN CORPUSCULAR HEMOGLOBIN 32.2 pg (27.0-33.4); MEAN CORPUSCULAR HGB CONC 34.7 g/dL (32.0-36.0); MEAN CORPUSCULAR VOLUME 93 fl (80-97); MONOCYTES % (AUTO) 9.3 % (3-13); PLATELET COUNT 216 10^3/uL (150-450); RED BLOOD COUNT 4.44 10^6/uL (4.35-5.55); RED CELL DISTRIBUTION WIDTH 12.7 % (11.5-14.0); SEGMENTED NEUTROPHILS % (AUTO) 62.3 % (42-78); TOTAL CELLS COUNTED % (AUTO) 100 %; WHITE BLOOD COUNT 5.5 10^3/uL (4.0-10.5)
[2019-12-27 13:48] LABS: APPEARANCE,URINE SLIGHTLY-CLOUDY; BILIRUBIN,URINE NEGATIVE (NEGATIVE); COLOR,URINE YELLOW; GLUCOSE, URINE NEGATIVE (NEGATIVE); KETONES,URINE TRACE mg/dL (NEGATIVE); LEUKOCYTE ESTERASE,URINE NEGATIVE (NEGATIVE); NITRITE,URINE NEGATIVE (NEGATIVE); PROTEIN,URINE 30 mg/dL (NEGATIVE); URINE SPECIFIC GRAVITY 1.029
[2019-12-27 13:58] LABS: ALBUMIN 4.7 g/dL (3.5-5.0); ALKALINE PHOSPHATASE 59 U/L (38-126); ANION GAP 10 (5-19); ASPARTATE AMINO TRANSFERASE 23 U/L (17-59); BILIRUBIN,DIRECT 0.1 mg/dL (0.0-0.4); BILIRUBIN,TOTAL 0.6 mg/dL (0.2-1.3); BLOOD UREA NITROGEN 12 mg/dL (7-20); CALCIUM 10.2 mg/dL (8.4-10.2); CARBON DIOXIDE 27 mmol/L (22-30); CHLORIDE 103 mmol/L (98-107); GLUCOSE 94 mg/dL (75-110); TOTAL PROTEIN 7.8 g/dL (6.3-8.2)
== END 2019-12-27 14:36 | disposition left against medical advice (07) ==
LOC: ER 11:52
DX: R56.9 Unspecified convulsions (principal); F17.200 Nicotine dependence, unspecified, uncomplicated
CPT/HCPCS: 99284; 96365; 36415; 80177; 85025; 80053; 81001; 80164; J3490; J1953

== ENCOUNTER 2020-02-21 14:48 | Emergency (ER) | payer MEDICAID ==
[2020-02-21] MEDS ORDERED: BUTALB/ACETAMINOPHEN/CAFFEINE 1 TAB EACH PO ONE (16:03)
[2020-02-21] MEDS ORDERED: IBUPROFEN 800 MG TABLET PO ONE (16:03)
--- NOTE | 2020-02-21 16:04 | ER Document Report ---
HPI - HPI Time Seen by Provider: 02/21/20 15:50 Notes: 19-year-old male presented emergency department chief complaint of headache that began last night. He states the headache has been intermittent. Patient tried placing an ice pack to the area and also tried eating soup. He did not take any Tylenol or ibuprofen for his headache. He does have a history of seizures. No fever, no chills, no neck pain, body aches or any other concern for infectious process. - ROS Systems Reviewed and Negative: Yes All other systems reviewed and negative - CONSTITUTIONAL Notes: headache - REPRODUCTIVE Reproductive: DENIES: : Past Medical History - General Information source: Patient - Social History Smoking Status: Never Smoker Frequency of alcohol use: None Drug Abuse: None Family History: Reviewed & Not Pertinent, Other - Seizure Neurological Medical History: Reports: Hx Seizures - on both depakote and keppra Renal/ Medical History: Denies: Hx Peritoneal Dialysis Psychiatric Medical History: Reports: Hx Attention Deficit Hyperactivity Disorder, Hx Depression - Immunizations Immunizations up to date: Yes Hx Diphtheria, Pertussis, Tetanus Vaccination: No Vertical Provider Document - CONSTITUTIONAL Notes: PHYSICAL EXAMINATION: GENERAL: Well-appearing, well-nourished and in no acute distress. HEAD: Atraumatic, normocephalic. EYES: Pupils equal round and reactive to light, extraocular movements intact, sclera anicteric, conjunctiva are normal. ENT: Nares patent, oropharynx clear without exudates. Moist mucous membranes. NECK: Normal range of motion, supple without lymphadenopathy LUNGS: Breath sounds clear to auscultation bilaterally and equal. No wheezes rales or rhonchi. HEART: Regular rate and rhythm without murmurs ABDOMEN: Soft, nontender, nondistended abdomen. No guarding, no rebound. No masses appreciated. Musculoskeletal: Normal range of motion, no pitting or edema. No cyanosis. NEUROLOGICAL: Cranial nerves grossly intact. Normal speech, normal gait. Normal sensory, motor exams PSYCH: Normal mood, normal affect. SKIN: Warm, Dry, normal turgor, no rashes or lesions noted. - INFECTION CONTROL TRAVEL OUTSIDE OF THE [place] IN LAST 30 DAYS: No Course - Re-evaluation Re-evalutation: Patient appears well, nontoxic, vital signs reviewed and are within normal limits. No nuchal rigidity noted. Patient has not taken any [id number] medications for his symptoms. We will try some ibuprofen and Fioricet to see if this helps with patient's headache. Patient reports complete resolution of headache after administration of medications here in the emergency department. He will be discharged home at this time. Encouraged follow-up with his primary care provider. - Vital Signs Vital signs: Temp Pulse Resp BP Pulse Ox 98.3 F 80 18 113/70 98 02/21/20 15:22 02/21/20 15:22 02/21/20 15:22 02/21/20 15:22 02/21/20 15:22 - Laboratory Results Critical Laboratory Results Reviewed: No Critical Results - Radiology Results Critical Radiology Results Reviewed: No Critical Results Discharge - Discharge Clinical Impression: Headache Qualifiers: Headache type: unspecified Headache chronicity pattern: acute headache Intractability: not intractable Qualified Code(s): R51.9 - Headache, unspecified Condition: Stable Disposition: HOME, SELF-CARE Additional Instructions: You were seen today for a migraine headache. Please follow-up with your primary care doctor regarding today's ED visit. Return to emergency department immediately if you develop a headache that gets to its maximum severity within 20 minutes of onset, you pass out, you develop weakness, numbness, changes in your vision, become unable to keep any fluids down for more than 12 hours, or develop a fever greater than 100.4 degrees Fahrenheit. If you develop a similar migraine headache in the future I recommend that you immediately take 600 mg of ibuprofen and 50 mg of Benadryl and go to sleep as quickly as possible. This can often prevent your migraine headache from becoming severe. Referrals: LUIS BAH MD [Primary Care Provider] - Follow up as needed
[2020-02-21 18:04] VITALS: BP 122/69
== END 2020-02-21 17:57 | disposition home or self-care (01) ==
LOC: ER 14:48
DX: R51.9 Headache, unspecified (principal)
CPT/HCPCS: 99283; J3490 ×2